=== PATIENT | male | born 1950 | race Caucasian/White ===

== ENCOUNTER 2016-05-28 07:21 | Day surgery (SDC) | payer BC ==
[2016-05-26 08:42] VITALS: BMI 27.8
[2016-05-28 07:33] VITALS: RESP 18; TEMP 98
[2016-05-28] MEDS ORDERED: LIDOCAINE 1% 20 ML VIAL (10MG/ML) FOR IV START INTRADERMA ONE (07:34)
[2016-05-28] MEDS ORDERED: LACTATED RINGERS 1,000 ML IV ONE (07:34)
[2016-05-28] MEDS ORDERED: PROPOFOL 10 MG/ML 20 ML VIAL IV ONE (08:00)
--- NOTE | 2016-05-28 08:06 | P.GSHP ---
History of Present Illness H&P Date: 05/28/16 Chief Complaint: Screening colonoscopy This a 66-year-old male referred from Dr. Hermann Hassan. Patient rents today for screening colonoscopy. - Constitutional Constitutional: Reports as per HPI Past Medical History Past Medical History: Hyperlipidemia, Hypertension, Prostate Disorder Additional Past Medical History / Comment(s): "slightly high BP", gout History of Any Multi-Drug Resistant Organisms: None Reported Past Surgical History: Appendectomy, Cholecystectomy, Orthopedic Surgery, Tonsillectomy Additional Past Surgical History / Comment(s): rach shoulder rotator cuff, Past Anesthesia/Blood Transfusion Reactions: No Reported Reaction Past Psychological History: No Psychological Hx Reported Smoking Status: Never smoker Past Alcohol Use History: None Reported Past Drug Use History: None Reported - Past Family History Father Family Medical History: Cancer Medications and Allergies Home Medications Medication Instructions Recorded Confirmed Type Doxazosin [Cardura] 1 mg PO HS 05/26/16 05/26/16 History Febuxostat [Uloric] 40 mg PO HS 05/26/16 05/26/16 History Simvastatin [Zocor] 20 mg PO HS 05/26/16 05/26/16 History Tamsulosin [Flomax] 0.4 mg PO HS 05/26/16 05/26/16 History Allergies Allergy/AdvReac Type Severity Reaction Status Date / Time No Known Allergies Allergy Verified 05/26/16 08:35 Surgical - Exam Vital Signs Temp Pulse Resp BP Pulse Ox 98.0 F 100 18 133/84 98 05/28/16 07:32 05/28/16 07:32 05/28/16 07:32 05/28/16 07:32 05/28/16 07:32 - General well developed, no distress - Eyes PERRL - ENT normal pinna - Neck no masses - Respiratory normal expansion - Cardiovascular Rhythm: regular - Abdomen Abdomen: non tender Assessment and Plan Plan: We'll perform screening colonoscopy.
--- NOTE | 2016-05-28 08:14 | P.OP ---
Date of Procedure: 05/28/16 Preoperative Diagnosis: Screening colonoscopy Postoperative Diagnosis: Normal colon Procedure(s) Performed: Colonoscopy Anesthesia: MAC Surgeon: Quang Pyle Pathology: none sent Condition: stable Disposition: PACU Description of Procedure: PROCEDURE: The patient was placed on the endoscopy table in the lateral position. Digital rectal examination was performed which revealed no abnormalities. The prostate was symmetrical without nodules. Flexible colonoscope was then placed in the patient's anus and passed throughout the entire colon. The ileocecal valve was visualized. The cecum, ascending, transverse, descending and sigmoid colon were normal. The rectum was normal as well. There were no masses, polyps or diverticula noted in the entire colon. SUMMARY OF FINDINGS: Normal colonoscopy.
[2016-05-28 08:58] VITALS: BP 122/78; PULSE 73
== END 2016-05-28 09:00 | disposition home or self-care (01) ==
LOC: ORWHC2ENDO 07:21
PROVIDERS: ATTEND Surgery
DX: Z12.11 Encounter for screening for malignant neoplasm of colon (principal); I10 Essential (primary) hypertension; E78.5 Hyperlipidemia, unspecified; N42.9 Disorder of prostate, unspecified; Z79.899 Other long term (current) drug therapy
CPT/HCPCS: J2704; G0121

== ENCOUNTER → 2020-07-09 | Outpatient (CLI) | payer BC ==
--- NOTE | 2020-07-09 13:50 | XR ---
EXAMINATION TYPE: XR Hip LT and AP Pelvis DATE OF EXAM: 07/09/2020 COMPARISON: NONE HISTORY: Trauma 6 months prior, pain TECHNIQUE: A single AP view of the pelvis is obtained. Two views of the left hip are obtained. FINDINGS: There is no acute fracture/dislocation evident in the pelvis. The hip and sacroiliac join ts appear symmetric and there may be some joint space loss, some mild marginal spurring. The overlyi ng soft tissue appears unremarkable. Two views of left hip show no acute fracture or dislocation. No focal lytic or sclerotic lesion seen in the proximal left femur. The overlying soft tissue is unremarkable. IMPRESSION: There is no acute fracture or dislocation in the pelvis or left hip. There may be underl rosanne osteoarthritic change.
--- NOTE | 2020-07-09 14:47 | XR ---
Lumbosacral spine HISTORY: Pain 5 views of lumbosacral spine There is no evident spondylolysis or spondylolisthesis. Lumbar vertebral bodies show preserved height and bone mineralization. Some loss of disc height present at L5-S1, L4-5 and L3-4, there is multilev el spondylosis. Sclerosis present in the posterior elements of the lower lumbar spine. Surgical clips are present right upper quadrant. 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 Calcification in the left parasp inal location may represent renal stone. IMPRESSION: Degenerative disc disease and facet arthropathy. Possible nephrolithiasis.
== END | disposition home or self-care (01) ==
LOC: RADXRMAIN 11:07
PROVIDERS: ATTEND Family Medicine
DX: M25.552 Pain in left hip (principal); M51.36 Other intervertebral disc degeneration, lumbar region; M12.88 Other specific arthropathies, not elsewhere classified, other specified site
CPT/HCPCS: 72110; 73502

== ENCOUNTER 2023-04-03 09:59 | Emergency (ER) | payer BC, OTHER ==
--- NOTE | 2023-04-03 10:15 | ED ---
General Adult HPI - General Chief complaint: Fall Stated complaint: Fall Time Seen by Provider: 04/03/23 10:00 Source: patient, RN notes reviewed Mode of arrival: ambulatory Limitations: no limitations - History of Present Illness Initial comments: Patient is a pleasant 73-year-old male presenting to the emergency department family for fall. Patient was sitting down in a chair when he missed and fell down. Patient is on Eliquis secondary to blood clots in his legs. 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 Family states after patient fell and struck his head he was dazed for several seconds. Patient was not completely unconscious. Patient denies syncopal episode. Patient denies any injury from the fall. - Related Data Home Medications Medication Instructions Recorded Confirmed Doxazosin [Cardura] 1 mg PO HS 05/26/16 05/26/16 Febuxostat [Uloric] 40 mg PO HS 05/26/16 05/26/16 Simvastatin [Zocor] 20 mg PO HS 05/26/16 05/26/16 Tamsulosin [Flomax] 0.4 mg PO HS 05/26/16 05/26/16 Allergies Allergy/AdvReac Type Severity Reaction Status Date / Time No Known Allergies Allergy Verified 04/03/23 10:08 Review of Systems ROS Statement: Those systems with pertinent positive or pertinent negative responses have been documented in the HPI. ROS Other: All systems not noted in ROS Statement are negative. Constitutional: Denies: fever Eyes: Denies: eye pain ENT: Denies: ear pain Respiratory: Denies: cough Cardiovascular: Denies: chest pain Endocrine: Denies: fatigue Gastrointestinal: Denies: abdominal pain Neurological: Reports: as per HPI. Denies: weakness Past Medical History Past Medical History: Cancer, Hyperlipidemia, Hypertension, Prostate Disorder Additional Past Medical History / Comment(s): "slightly high BP", gout, History of Any Multi-Drug Resistant Organisms: None Reported Past Surgical History: Appendectomy, Cholecystectomy, Orthopedic Surgery, Tonsillectomy Additional Past Surgical History / Comment(s): rach shoulder rotator cuff, Past Anesthesia/Blood Transfusion Reactions: No Reported Reaction Past Psychological History: No Psychological Hx Reported Smoking Status: Never smoker Past Alcohol Use History: None Reported Past Drug Use History: None Reported - Past Family History Father Family Medical History: Cancer General Exam Limitations: no limitations General appearance: alert, in no apparent distress Head exam: Present: normocephalic Eye exam: Present: normal appearance, PERRL, EOMI ENT exam: Present: normal oropharynx Neck exam: Present: normal inspection Respiratory exam: Present: normal lung sounds bilaterally Cardiovascular Exam: Present: regular rate, normal rhythm GI/Abdominal exam: Present: soft. Absent: tenderness Extremities exam: Present: normal inspection, full ROM. Absent: tenderness Neurological exam: Present: alert, oriented X3, CN II-XII intact. Absent: motor sensory deficit Expanded Neurological exam: Present: protecting the airway Cranial nerves: EOM's Intact: Normal Sensory exam: Upper Extremity Light Touch: Normal, Lower Extremity Light Touch: Normal Motor strength exam: RUE: 5, LUE: 5, RLE: 5, LLE: 5 Eye Response: (4) open spontaneously Motor Response: (6) obeys commands Verbal Response: (5) oriented Psychiatric exam: Present: normal affect, normal mood Skin exam: Present: normal color Course Vital Signs 04/03/23 04/03/23 04/03/23 10:02 10:55 12:06 Temperature 97.9 F Pulse Rate 115 H 116 H 103 H Respiratory 18 18 18 Rate Blood Pressure 126/83 121/79 122/77 O2 Sat by Pulse 93 L 92 L 95 Oximetry Medical Decision Making - Medical Decision Making Was pt. sent in by a medical professional or institution ([facility], [employer], urgent care, hospital, or longterm...) When possible be specific @ -No Did you speak to anyone other than the patient for history (EMS, parent, family, police, friend...)? What history was obtained from this source @ -Family is present and helps provide history including episode of the fall Did you review nursing and triage notes (agree or disagree)? Why? @ -I reviewed and agree with nursing and triage notes Were old charts reviewed (outside hosp., previous admission, EMS record, old EKG, old radiological studies, urgent care reports/EKG's, longterm records)? Report findings @ -No old charts were reviewed Differential Diagnosis (chest pain, altered mental status, abdominal pain women, abdominal pain men, vaginal bleeding, weakness, fever, dyspnea, syncope, heada melly, dizziness, GI bleed, back pain, seizure, CVA, palpatations, mental health, musculoskeletal)? @ -Differential Altered Mental Status: Hypoglycemia, DKA, hypercapnia, ETOH, overdose, CO poisoning, trauma, myxedema coma, HTN encephalopathy, infection, encephalitis, psychosis, intercranial hemorrhage, hepatic encephalopathy, meningitis, CVA, this is not meant to be an all-inclusive list s EKG interpreted by me (3pts min.). @ -As above X-rays interpreted by me (1pt min.). @ -None done CT interpreted by me (1pt min.). @ -CT brain reveals no acute abnormality. U/S interpreted by me (1pt. min.). @ -None done What testing was considered but not performed or refused? (CT, X-rays, U/S, labs)? Why? @ -None What meds were considered but not given or refused? Why? @ -None Did you discuss the management of the patient with other professionals (professionals i.e. , PA, [employer], lab, RT, psych nurse, social service assistant, lawyer real estate, teacher, service officer, case management associate)? Give summary @ -No Was smoking cessation discussed for >3mins.? @ -No Was critical care preformed (if so, how long)? @ -No Were there social determinants of health that impacted care today? How? (Homelessness, low income, unemployed, alcoholism, drug addiction, transportation, low edu. Level, literacy, decrease access to med. care, shelter, rehab)? @ -No Was there de-escalation of care discussed even if they declined (Discuss DNR or withdrawal of care, Hospice)? DNR status @ -No What co-morbidities impacted this encounter? (DM, HTN, Smoking, COPD, CAD, Cancer, CVA, ARF, Chemo, Hep., AIDS, mental health diagnosis, sleep apnea, morbid obesity)? @ -None Was patient admitted / discharged? Hospital course, mention meds given and route, prescriptions, significant lab abnormalities, going to OR and other pertinent info. @ -Patient reevaluated. Patient and family updated on results and plan. Both request discharge home. Undiagnosed new problem with uncertain prognosis? @ -No Drug Therapy requiring intensive monitoring for toxicity (Heparin, Nitro, Insulin, Cardizem)? @ -No Were any procedures done? @ -No Diagnosis/symptom? @ -Fall, head injury Acute, or Chronic, or Acute on Chronic? @ -Acute, acute Uncomplicated (without systemic symptoms) or Complicated (systemic symptoms)? @ -Default Side effects of treatment? @ -No Exacerbation, Progression, or Severe Exacerbation? @ -No Poses a threat to life or bodily function? How? (Chest pain, USA, NC, pneumonia, PE, COPD, DKA, ARF, appy, cholecystitis, CVA, Diverticulitis, Homicidal, Suicidal, threat to staff... and all critical care pts) @ -No Patient did have continued elevated heart rate. Additional labs ordered. Patient did receive liter bolus. Patient is feeling better. Vitals improved. Patient to be discharged. Previous hemoglobin was 8.0 per family - Lab Data Result diagrams: 04/03/23 12:04/03/23 12: Lab Results 04/03/23 04/03/23 Range/Units 12: 12: WBC 8.7 (3.8-10.6) k/uL RBC 2.39 L (4.30-5.90) m/uL Hgb 7.8 L (13.0-17.5) gm/dL Hct 23.6 L (39.0-53.0) % MCV 98.6 (80.0-100.0) fL MCH 32.8 (25.0-35.0) pg MCHC 33.3 (31.0-37.0) g/dL RDW 19.6 H (11.5-15.5) % Plt Count 58 L (150-450) k/uL MPV 9.7 Neutrophils % 90 % Lymphocytes % 9 % Monocytes % 1 % Eosinophils % 0 % Basophils % 0 % Neutrophils # 7.8 H (1.3-7.7) k/uL Lymphocytes # 0.8 L (1.0-4.8) k/uL Monocytes # 0.1 (0-1.0) k/uL Eosinophils # 0.0 (0-0.7) k/uL Basophils # 0.0 (0-0.2) k/uL Manual Slide Review Performed Anisocytosis Slight Macrocytosis Slight Sodium 134 L (137-145) mmol/L Potassium 4.1 (3.5-5.1) mmol/L Chloride 106 (98-107) mmol/L Carbon Dioxide 19 L (22-30) mmol/L Anion Gap 9 mmol/L BUN 36 H (9-20) mg/dL Creatinine 1.05 (0.66-1.25) mg/dL Est GFR (CKD-EPI)AfAm 82 (>60 ml/min/1.73 sqM) Est GFR (CKD-EPI)NonAf 71 (>60 ml/min/1.73 sqM) Glucose 98 (74-99) mg/dL Calcium 8.3 L (8.4-10.2) mg/dL Magnesium 1.6 (1.6-2.3) mg/dL Total Bilirubin 0.4 (0.2-1.3) mg/dL AST 63 H (17-59) U/L ALT 70 H (4-49) U/L Alkaline Phosphatase 261 H (38-126) U/L Total Protein 5.4 L (6.3-8.2) g/dL Albumin 3.0 L (3.5-5.0) g/dL Disposition Clinical Impression: Fall, Head contusion, Dehydration Disposition: HOME SELF-CARE Condition: Stable Instructions (If sedation given, give patient instructions): Fall Prevention (ED) Additional Instructions: Hold blood thinners for 24 hours. Please do follow-up with your primary care physician in the next 1 or 2 days for recheck. Return for increased falls, passing out, confusion, worsening or changing symptoms or other concerns. Is patient prescribed a controlled substance at d/c from ED?: No Referrals: Hermann Hassan MD [Primary Care Provider] - 1-2 days Time of Disposition: 12:41
[2023-04-03 10:33] VITALS: RESP 18
--- NOTE | 2023-04-03 11:17 | CT ---
EXAMINATION TYPE: CT brain wo con CT DLP: 1095.4 mGycm, Automated exposure control for dose reduction was used. DATE OF EXAM: 04/03/2023 10:51 AM COMPARISON: None. CLINICAL INDICATION:Male, 73 years old with history of fall, fall, no prior on pacs TECHNIQUE: Brain: Axial CT images of the brain were obtained with coronal and sagittal reformats created and rev iewed. Contrast used: None. Oral contrast used: None. FINDINGS: Brain: Extra-axial spaces: No abnormal extra-axial fluid collections. Ventricular system: Within normal limits Cerebral parenchyma: Remote left basal ganglia injury. No acute intraparenchymal hemorrhage or mass e ffect. The foley-white junction is well differentiated. Cerebellum: Normal injury to the left cerebellum. Mass effect: No evidence of midline shift. Intracranial vasculature: unremarkable Soft tissues: Normal. Calvarium/osseous structures: No depressed skull fracture. Paranasal sinuses and mastoid air cells: Mild scattered paranasal sinus disease. Visualized orbits: Orbital contents are intact. IMPRESSION: 1. No acute intracranial process. 2. 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
[2023-04-03] MEDS: SODIUM CHLORIDE 0.9% 1,000 ML IV STA (12:03)
[2023-04-03] MEDS: ACETAMINOPHEN TAB 500 MG TAB PO STA (12:04)
[2023-04-03 12:11] LABS: Anisocytosis Slight; Basophils % (A) 0 %; Eosinophils % (A) 0 %; HCT 23.6 % (39.0-53.0); HGB 7.8 gm/dL (13.0-17.5); Lymphocytes # (A) 0.8 k/uL (1.0-4.8); Lymphocytes % (A) 9 %; MCH 32.8 pg (25.0-35.0); MCHC 33.3 g/dL (31.0-37.0); MCV 98.6 fL (80.0-100.0); Macrocytosis Slight; Mean Platelet Volume 9.7; Monocytes # (A) 0.1 k/uL (0-1.0); Monocytes % (A) 1 %; Neutrophils # (A) 7.8 k/uL (1.3-7.7); Neutrophils % (A) 90 %; RBC 2.39 m/uL (4.30-5.90); RDW 19.6 % (11.5-15.5); WBC 8.7 k/uL (3.8-10.6)
[2023-04-03 12:30] LABS: ALT 70 U/L (4-49); AST 63 U/L (17-59); African American GFR (CKD) 82 (>60 ml/min/1.73 sqM); Alkaline Phosphatase 261 U/L (38-126); Anion Gap 9 mmol/L; Blood Urea Nitrogen 36 mg/dL (9-20); Calcium 8.3 mg/dL (8.4-10.2); Carbon Dioxide 19 mmol/L (22-30); Chloride 106 mmol/L (98-107); Glucose 98 mg/dL (74-99); Magnesium 1.6 mg/dL (1.6-2.3); Non-African American GFR(CKD) 71 (>60 ml/min/1.73 sqM); Potassium 4.1 mmol/L (3.5-5.1); Sodium 134 mmol/L (137-145); Total Bilirubin 0.4 mg/dL (0.2-1.3); Total Protein 5.4 g/dL (6.3-8.2)
[2023-04-03 12:35] LABS: Platelet Count 58 k/uL (150-450)
[2023-04-03 13:31] VITALS: BP 148/94; PULSE 102; TEMP 97.6
== END 2023-04-03 13:15 | disposition home or self-care (01) ==
LOC: EC 09:59
DX: S00.93XA Contusion of unspecified part of head, initial encounter (principal); E86.0 Dehydration; I10 Essential (primary) hypertension; E78.5 Hyperlipidemia, unspecified; Z79.01 Long term (current) use of anticoagulants; Z79.899 Other long term (current) drug therapy; Z90.49 Acquired absence of other specified parts of digestive tract; W01.0XXA Fall on same level from slipping, tripping and stumbling without subsequent striking against object, initial encounter
CPT/HCPCS: 36415; 80053; 83735; 85025; 70450; 99285; 96374; 96361; J1642

== ENCOUNTER 2023-04-17 20:44 | Inpatient (IN) | payer BC, MEDICARE ==
--- NOTE | 2023-04-17 20:59 | ED ---
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 and son are at bedside and provide the history. States that the patient was at home and felt well. The patient had sudden onset of altered mental status while watching TV. states that the patient reported he was "very cold". She states that he then went unresponsive. The patient was nonverbal and would not respond to any commands. She denies that there was any seizure-like activity. She does report that the patient had a recent head injury. He was seen in our emergency department and had a CAT scan of his brain performed. She also states that the patient received chemotherapy infusion on . [facility] of his bile duct cancer. Patient is status post Whipple procedure.. He also had a blood transfusion on . Patient arrives to our facility and is slowly starting to respond to questions. He continues to have residual weakness in his right leg and therefore code stroke was activated. Upon checking the patient's vitals he does have a notable fever. Family states that the patient was not having fevers and has no infectious symptoms. The remainder of the HPI is limited because the patient's current state - Related Data Home Medications Medication Instructions Recorded Confirmed Tamsulosin [Flomax] 0.4 mg PO HS 05/26/16 04/18/23 Acetaminophen/Codeine Liquid 5 ml PO Q6H PRN 04/18/23 04/18/23 [Tylenol w/codeine Elixir] Apixaban [Eliquis] 5 mg PO BID 04/18/23 04/18/23 HYDROcodone/APAP 7.5-325MG [[place] 1 tab PO TID PRN 04/18/23 04/18/23 7.5-325] Lipase/Protease/Amylase [Creon Dr 1 capsule PO QID 04/18/23 04/18/23 24,000 Unit Capsule] Metoclopramide HCl [Reglan] 10 mg PO TID 04/18/23 04/18/23 Midodrine [ProAmatine] 5 mg PO BID@0830,1500 04/18/23 04/18/23 Mirtazapine 15 mg PO HS 04/18/23 04/18/23 Omeprazole [PriLOSEC] 20 mg PO DAILY 04/18/23 04/18/23 Sennosides [Senokot] 8.6 mg PO BID 04/18/23 04/18/23 allopurinoL 100 mg PO HS 04/18/23 04/18/23 Previous Rx's Medication Instructions Recorded Amoxic-Pot Clav 875-125Mg 1 tab PO BID 10 Days #20 tab 04/22/23 [Augmentin 875-125] Atorvastatin [Lipitor] 20 mg PO HS #30 tab 04/22/23 Dabigatran [Pradaxa] 150 mg PO BID #60 capsule 04/22/23 Prochlorperazine [Compazine] 10 mg PO QID PRN #0 04/22/23 Allergies Allergy/AdvReac Type Severity Reaction Status Date / Time No Known Allergies Allergy Verified 04/18/23 08:11 Review of Systems ROS Statement: Those systems with pertinent positive or pertinent negative responses have been documented in the HPI. ROS Other: All systems not noted in ROS Statement are negative. Past Medical History Past Medical History: Cancer, Hyperlipidemia, Hypertension, Prostate Disorder Additional Past Medical History / Comment(s): "slightly high BP", gout, History of Any Multi-Drug Resistant Organisms: None Reported Past Surgical History: Appendectomy, Cholecystectomy, Orthopedic Surgery, Tonsillectomy Additional Past Surgical History / Comment(s): rach shoulder rotator cuff, Past Anesthesia/Blood Transfusion Reactions: No Reported Reaction Past Psychological History: No Psychological Hx Reported Smoking Status: Never smoker Past Alcohol Use History: None Reported Past Drug Use History: None Reported - Past Family History Father Family Medical History: Cancer General Exam Limitations: altered mental status General appearance: other (Patient is awake. Patient will follow some commands. Patient is nonverbal) Head exam: Present: atraumatic, normocephalic, normal inspection Eye exam: Present: normal appearance, PERRL, EOMI. Absent: scleral icterus, conjunctival injection, periorbital swelling ENT exam: Present: mucous membranes dry Neck exam: Present: normal inspection. Absent: tenderness, meningismus, lymphadenopathy Respiratory exam: Present: normal lung sounds bilaterally. Absent: respiratory distress, wheezes, rales, rhonchi, stridor Cardiovascular Exam: Present: normal rhythm, tachycardia GI/Abdominal exam: Present: soft, normal bowel sounds. Absent: distended, tenderness, guarding, rebound, rigid Extremities exam: Present: other (Patient has no effort against gravity of the right lower extremity.) Neurological exam: Present: altered, other (Patient is nonverbal. Patient will squeeze hands but will not blink eyes) Psychiatric exam: Present: flat affect Course Vital Signs 04/17/23 04/17/23 04/17/23 20:49 20:59 21:14 Temperature 102.7 F H Pulse Rate 161 H 128 H 130 H Respiratory 13 17 17 Rate Blood Pressure 171/109 132/92 O2 Sat by Pulse 94 L 95 95 Oximetry 04/17/23 04/17/23 04/17/23 21:29 21:41 21:44 Temperature Pulse Rate 135 H 142 H 135 H Respiratory 17 19 17 Rate Blood Pressure 165/86 O2 Sat by Pulse 95 93 L 95 Oximetry 04/17/23 04/17/23 04/17/23 21:59 22:14 22:33 Temperature 99.4 F Pulse Rate 126 H 147 H Respiratory 17 18 Rate Blood Pressure 124/77 110/69 O2 Sat by Pulse 95 94 L Oximetry 04/17/23 04/17/23 04/17/23 22:44 23:14 23:44 Temperature Pulse Rate 116 H 109 H 105 H Respiratory 18 17 17 Rate Blood Pressure 119/76 131/80 117/70 O2 Sat by Pulse 94 L 95 Oximetry 04/18/23 04/18/23 04/18/23 00:14 00:44 01:14 Temperature Pulse Rate 110 H 110 H 110 H Respiratory 18 17 18 Rate Blood Pressure 102/63 139/86 139/86 O2 Sat by Pulse 95 94 L 94 L Oximetry 04/18/23 04/18/23 04/18/23 01:44 02:00 02:14 Temperature Pulse Rate 127 H 110 H 102 H Respiratory 18 17 18 Rate Blood Pressure 127/76 127/76 116/74 O2 Sat by Pulse 98 98 Oximetry 04/18/23 04/18/23 04/18/23 02:44 03:00 03:14 Temperature Pulse Rate 116 H 101 H 103 H Respiratory 17 18 18 Rate Blood Pressure 136/91 136/91 99/67 O2 Sat by Pulse 95 95 98 Oximetry 04/18/23 04/18/23 04/18/23 03:44 08:00 11:00 Temperature Pulse Rate 112 H 98 68 Respiratory 18 16 16 Rate Blood Pressure 145/97 130/80 128/68 O2 Sat by Pulse 97 100 98 Oximetry 04/18/23 04/18/23 04/18/23 16:00 17:00 19:00 Temperature Pulse Rate 85 75 90 Respiratory 16 16 18 Rate Blood Pressure 145/68 138/68 137/88 O2 Sat by Pulse 96 96 99 Oximetry 04/18/23 04/19/23 04/19/23 23:00 03:00 06:12 Temperature Pulse Rate 85 74 80 Respiratory 18 18 18 Rate Blood Pressure 132/80 130/80 132/89 O2 Sat by Pulse 99 96 98 Oximetry 04/19/23 04/19/23 04/19/23 09:10 10:00 14:01 Temperature Pulse Rate 93 94 Respiratory 18 18 Rate Blood Pressure 125/96 120/78 O2 Sat by Pulse 95 98 98 Oximetry 04/19/23 04/19/23 18:42 19:30 Temperature Pulse Rate 78 84 Respiratory 18 18 Rate Blood Pressure 93/62 118/68 O2 Sat by Pulse 96 96 Oximetry Medical Decision Making - Medical Decision Making Was pt. sent in by a medical professional or institution (, PA, REGISTERED NURSE CARDIAC, urgent care, hospital, or fci...) When possible be specific @ -No Did you speak to anyone other than the patient for history (EMS, parent, family, police, friend...)? What history was obtained from this source @ -Son and Did you review nursing and triage notes (agree or disagree)? Why? @ -I reviewed and agree with nursing and triage notes Were old charts reviewed (outside hosp., previous admission, EMS record, old EKG, old radiological studies, urgent care reports/EKG's, fci records)? Report findings @ -No old charts were reviewed Differential Diagnosis (chest pain, altered mental status, abdominal pain women, abdominal pain men, vaginal bleeding, weakness, fever, dyspnea, syncope, headache, dizziness, GI bleed, back pain, seizure, CVA, palpatations, mental health, musculoskeletal)? @ -Differential Altered Mental Status: Hypoglycemia, DKA, hypercapnia, ETOH, overdose, CO poisoning, trauma, myxedema coma, HTN encephalopathy, infection, encephalitis, psychosis, intercranial hemorrhage, hepatic encephalopathy, meningitis, CVA, this is not meant to be an all-inclusive list EKG interpreted by me (3pts min.). @ -Yes and demonstrates sinus tachycardia with a rate of 148. QRS 77. QTc of 367. Significant baseline artifact X-rays interpreted by me (1pt min.). @ -Yes and demonstrates no acute process CT interpreted by me (1pt min.). @ -Yes and demonstrates old stroke U/S interpreted by me (1pt. min.). @ -None done What testing was considered but not performed or refused? (CT, X-rays, U/S, labs)? Why? @ -None What meds were considered but not given or refused? Why? @ -None Did you discuss the management of the patient with other professionals (professionals i.e. , PA, REGISTERED NURSE CARDIAC, lab, RT, psych nurse, social director, paper bundler, teacher, sewage reticulation drafting officer, case mgr)? Give summary @ -Spoke with Dr. Arellano to ensure that I can give the patient his Eliquis Was smoking cessation discussed for >3mins.? @ -No Was critical care preformed (if so, how long)? @ -Yes, 40 minutes for code stroke activation Were there social determinants of health that impacted care today? How? (Homelessness, low income, unemployed, alcoholism, drug addiction, transportation, low edu. Level, literacy, decrease access to med. care, usp, rehab)? @ -No Was there de-escalation of care discussed even if they declined (Discuss DNR or withdrawal of care, Hospice)? DNR status @ -Yes and would like the remain full code What co-morbidities impacted this encounter? (DM, HTN, Smoking, COPD, CAD, Cancer, CVA, ARF, Chemo, Hep., AIDS, mental health diagnosis, sleep apnea, morbid obesity)? @ -Bile duct cancer, CVA Was patient admitted / discharged? Hospital course, mention meds given and route, prescriptions, significant lab abnormalities, going to OR and other pertinent info. @ -Upon arrival patient was placed into trauma 3. Thorough history and physical exam was performed. Patient does present with acute onset of altered mental status and therefore code stroke was activated. CT was performed which demonstrates no acute process. Patient is on anticoagulation and therefore not a tPA candidate. Patient found to have a fever. Infectious workup completed without source. Patient is initiated on antibiotics. I spoke with Dr. Arellano to ensure that I could give the patient his Eliquis with stroke in the differential. He was okay with me dispensing this to the patient. Patient will be admitted for infectious workup as well as neurology workup. Spoke with family who is agreeable to admission. Dr. Hummel accepts admission Undiagnosed new problem with uncertain prognosis? @ -Yes Drug Therapy requiring intensive monitoring for toxicity (Heparin, Nitro, Insulin, Cardizem)? @ -No Were any procedures done? @ -No Diagnosis/symptom? @ -Acute encephalopathy, possible CVA, pyrexia, fever of unknown origin, neutropenic fever, bile duct cancer on chemo Acute, or Chronic, or Acute on Chronic? @ -Acute Uncomplicated (without systemic symptoms) or Complicated (systemic symptoms)? @ -Complicated Side effects of treatment? @ -No Exacerbation, Progression, or Severe Exacerbation? @ -No Poses a threat to life or bodily function? How? (Chest pain, [place], [place], pneumonia, PE, COPD, DKA, ARF, appy, cholecystitis, CVA, Diverticulitis, Homicidal, Suicidal, threat to staff... and all critical care pts) @ -Yes as patient is acutely altered - Lab Data Result diagrams: 04/22/23 08:00 04/20/23 07:54 Lab Results 04/17/23 04/17/23 04/17/23 Range/Units 20:59 21:00 21:00 WBC 1.3 L* (3.8-10.6) k/uL RBC 2.60 L (4.30-5.90) m/uL Hgb 8.7 L (13.0-17.5) gm/dL Hct 25.6 L (39.0-53.0) % MCV 98.3 (80.0-100.0) fL MCH 33.6 (25.0-35.0) pg MCHC 34.2 (31.0-37.0) g/dL RDW 20.6 H (11.5-15.5) % Plt Count 132 L D (150-450) k/uL MPV 9.2 Neutrophils % 82 % Lymphocytes % 14 % Monocytes % 1 % Eosinophils % 1 % Basophils % 0 % Neutrophils # 1.1 L (1.3-7.7) k/uL Lymphocytes # 0.2 L (1.0-4.8) k/uL Monocytes # 0.0 (0-1.0) k/uL Eosinophils # 0.0 (0-0.7) k/uL Basophils # 0.0 (0-0.2) k/uL Anisocytosis Moderate Macrocytosis Moderate PT 10.9 (10.0-12.5) sec INR 1.0 (<1.2) APTT 23.8 (22.0-30.0) sec Sodium (137-145) mmol/L Potassium (3.5-5.1) mmol/L Chloride (98-107) mmol/L Carbon Dioxide (22-30) mmol/L Anion Gap mmol/L BUN (9-20) mg/dL Creatinine (0.66-1.25) mg/dL Est GFR (CKD-EPI)AfAm (>60 ml/min/1.73 sqM) Est GFR (CKD-EPI)NonAf (>60 ml/min/1.73 sqM) Glucose (74-99) mg/dL Lactic Ac Sepsis Rflx Plasma Lactic Acid Bry[place] (0.7-2.0) mmol/L Calcium (8.4-10.2) mg/dL Total Bilirubin (0.2-1.3) mg/dL AST (17-59) U/L ALT (4-49) U/L Alkaline Phosphatase (38-126) U/L Creatine Kinase (55-170) U/L Troponin I 0.040 H* (0.000-0.034) ng/mL Total Protein (6.3-8.2) g/dL Albumin (3.5-5.0) g/dL Urine Color Urine Appearance (Clear) Urine pH (5.0-8.0) Ur Specific [place] (1.001-1.035) Urine Protein (Negative) Urine Glucose (UA) (Negative) Urine Ketones (Negative) Urine Blood (Negative) Urine Nitrite (Negative) Urine Bilirubin (Negative) Urine Urobilinogen (<2.0) mg/dL Ur Leukocyte Esterase (Negative) Urine RBC (0-5) /hpf Urine WBC (0-5) /hpf Urine Bacteria (None) /hpf Urine Mucus (None) /hpf Influenza Type A (PCR) (Not Detectd) Influenza Type B (PCR) (Not Detectd) RSV (PCR) (Not Detectd) SARS-CoV-2 (PCR) (Not Detectd) 04/17/23 04/17/23 04/17/23 Range/Units 21:00 21:00 21:00 WBC (3.8-10.6) k/uL RBC (4.30-5.90) m/uL Hgb (13.0-17.5) gm/dL Hct (39.0-53.0) % MCV (80.0-100.0) fL MCH (25.0-35.0) pg MCHC (31.0-37.0) g/dL RDW (11.5-15.5) % Plt Count (150-450) k/uL MPV Neutrophils % % Lymphocytes % % Monocytes % % Eosinophils % % Basophils % % Neutrophils # (1.3-7.7) k/uL Lymphocytes # (1.0-4.8) k/uL Monocytes # (0-1.0) k/uL Eosinophils # (0-0.7) k/uL Basophils # (0-0.2) k/uL Anisocytosis Macrocytosis PT (10.0-12.5) sec INR (<1.2) APTT (22.0-30.0) sec Sodium 136 L (137-145) mmol/L Potassium 4.8 (3.5-5.1) mmol/L Chloride 107 (98-107) mmol/L Carbon Dioxide 19 L (22-30) mmol/L Anion Gap 10 mmol/L BUN 32 H (9-20) mg/dL Creatinine 1.47 H (0.66-1.25) mg/dL Est GFR (CKD-EPI)AfAm 54 (>60 ml/min/1.73 sqM) Est GFR (CKD-EPI)NonAf 47 (>60 ml/min/1.73 sqM) Glucose 152 H (74-99) mg/dL Lactic Ac Sepsis Rflx Plasma Lactic Acid [place] 3.1 H* (0.7-2.0) mmol/L Calcium 8.5 (8.4-10.2) mg/dL Total Bilirubin 1.0 (0.2-1.3) mg/dL AST 137 H (17-59) U/L ALT 81 H (4-49) U/L Alkaline Phosphatase 284 H (38-126) U/L Creatine Kinase 42 L (55-170) U/L Troponin I (0.000-0.034) ng/mL Total Protein 6.2 L (6.3-8.2) g/dL Albumin 3.3 L (3.5-5.0) g/dL Urine Color Urine Appearance (Clear) Urine pH (5.0-8.0) Ur Specific [place] (1.001-1.035) Urine Protein (Negative) Urine Glucose (UA) (Negative) Urine Ketones (Negative) Urine Blood (Negative) Urine Nitrite (Negative) Urine Bilirubin (Negative) Urine Urobilinogen (<2.0) mg/dL Ur Leukocyte Esterase (Negative) Urine RBC (0-5) /hpf Urine WBC (0-5) /hpf Urine Bacteria (None) /hpf Urine Mucus (None) /hpf Influenza Type A (PCR) Not Detected (Not Detectd) Influenza Type B (PCR) Not Detected (Not Detectd) RSV (PCR) Not Detected (Not Detectd) SARS-CoV-2 (PCR) Not Detected (Not Detectd) 04/17/23 04/18/23 Range/Units 23:06 00:21 WBC (3.8-10.6) k/uL RBC (4.30-5.90) m/uL Hgb (13.0-17.5) gm/dL Hct (39.0-53.0) % MCV (80.0-100.0) fL MCH (25.0-35.0) pg MCHC (31.0-37.0) g/dL RDW (11.5-15.5) % Plt Count (150-450) k/uL MPV Neutrophils % % Lymphocytes % % Monocytes % % Eosinophils % % Basophils % % Neutrophils # (1.3-7.7) k/uL Lymphocytes # (1.0-4.8) k/uL Monocytes # (0-1.0) k/uL Eosinophils # (0-0.7) k/uL Basophils # (0-0.2) k/uL Anisocytosis Macrocytosis PT (10.0-12.5) sec INR (<1.2) APTT (22.0-30.0) sec Sodium (137-145) mmol/L Potassium (3.5-5.1) mmol/L Chloride (98-107) mmol/L Carbon Dioxide (22-30) mmol/L Anion Gap mmol/L BUN (9-20) mg/dL Creatinine (0.66-1.25) mg/dL Est GFR (CKD-EPI)AfAm (>60 ml/min/1.73 sqM) Est GFR (CKD-EPI)NonAf (>60 ml/min/1.73 sqM) Glucose (74-99) mg/dL Lactic Ac Sepsis Rflx Y Plasma Lactic Acid [place] (0.7-2.0) mmol/L Calcium (8.4-10.2) mg/dL Total Bilirubin (0.2-1.3) mg/dL AST (17-59) U/L ALT (4-49) U/L Alkaline Phosphatase (38-126) U/L Creatine Kinase (55-170) U/L Troponin I (0.000-0.034) ng/mL Total Protein (6.3-8.2) g/dL Albumin (3.5-5.0) g/dL Urine Color Colorless Urine Appearance Clear (Clear) Urine pH 5.5 (5.0-8.0) Ur Specific [place] 1.032 (1.001-1.035) Urine Protein Negative (Negative) Urine Glucose (UA) Negative (Negative) Urine Ketones Negative (Negative) Urine Blood Small H (Negative) Urine Nitrite Negative (Negative) Urine Bilirubin Negative (Negative) Urine Urobilinogen <2.0 (<2.0) mg/dL Ur Leukocyte Esterase Negative (Negative) Urine RBC 7 H (0-5) /hpf Urine WBC 3 (0-5) /hpf Urine Bacteria Rare H (None) /hpf Urine Mucus Rare H (None) /hpf Influenza Type A (PCR) (Not Detectd) Influenza Type B (PCR) (Not Detectd) RSV (PCR) (Not Detectd) SARS-CoV-2 (PCR) (Not Detectd) Disposition Clinical Impression: Acute encephalopathy, Pyrexia of unknown origin, Pancytopenia, Maintenance ch emotherapy Disposition: ADMITTED IP TO THIS [facility] Condition: Serious Is patient prescribed a controlled substance at d/c from ED?: No Time of Disposition: 00:16 Decision to Admit Reason: Admit from EC Decision Date: 04/18/23 Decision Time: 00:16
--- NOTE | 2023-04-17 21:30 | CT ---
EXAMINATION TYPE: CT brain wo con CT DLP: 1289 mGycm, Automated exposure control for dose reduction was used. DATE OF EXAM: 04/17/2023 9:27 PM COMPARISON: 04/03/2023. CLINICAL INDICATION:Male, 73 years old with history of Neuro deficit, acute, stroke suspected, TECHNIQUE: Brain: Axial CT images of the brain were obtained with coronal and sagittal reformats created and rev iewed. Contrast used: None. Oral contrast used: None. FINDINGS: Brain: Extra-axial spaces: No abnormal extra-axial fluid collections. Ventricular system: Dilatation in proportion to cerebral atrophy. Cerebral parenchyma: Remote injury to the left bach radiata/basal ganglia first prominent perivascu lar space. Remote injury to the left cerebellum unchanged from prior. No acute intraparenchymal hemor rhage or mass effect. The foley-white junction is well differentiated. Scattered hypoattenuating area s are seen within the white matter. Cerebellum: Unremarkable. Mass effect: No evidence of midline shift. Intracranial vasculature: unremarkable Soft tissues: Normal. Calvarium/osseous structures: No depressed skull fracture. Paranasal sinuses and mastoid air cells: Mild scattered paranasal sinus disease. Visualized orbits: Orbital contents are intact. IMPRESSION: 1. No acute intracranial process. 2. Similar left basal ganglia/bach radiata and left cerebellar injuries.
[2023-04-17] MEDS: ACETAMINOPHEN IV (For NPO) 1,000 MG in EMPTY BAG 1 BAG IVPB STA (21:34)
[2023-04-17] MEDS: SODIUM CHLORIDE 0.9% 500 ML 500 ML IV STA (21:34)
--- NOTE | 2023-04-17 21:41 | XR ---
EXAMINATION TYPE: XR chest 2V DATE OF EXAM: 04/17/2023 9:35 PM CLINICAL INDICATION:Male, 73 years old with history of altered mental status; COMPARISON: Chest radiographs from 02/20/2021 TECHNIQUE: XR chest 2V Frontal and lateral views of the chest. FINDINGS: Lungs/Pleura: There is no evidence of pleural effusion, focal consolidation, or pneumothorax. Pulmonary vascularity: Unremarkable. Heart/mediastinum: Cardiomediastinal silhouette is unremarkable. Musculoskeletal: No acute osseous pathology. Other findings: None Lines/Tubes: Right internal jugular central venous catheter with distal tip at the cavoatrial junction. IMPRESSION: No acute cardiopulmonary disease/process.
[2023-04-17 21:47] LABS: Anisocytosis Moderate; Basophils % (A) 0 %; Eosinophils % (A) 1 %; HCT 25.6 % (39.0-53.0); HGB 8.7 gm/dL (13.0-17.5); Lymphocytes # (A) 0.2 k/uL (1.0-4.8); Lymphocytes % (A) 14 %; MCH 33.6 pg (25.0-35.0); MCHC 34.2 g/dL (31.0-37.0); MCV 98.3 fL (80.0-100.0); Macrocytosis Moderate; Mean Platelet Volume 9.2; Monocytes % (A) 1 %; Neutrophils # (A) 1.1 k/uL (1.3-7.7); Neutrophils % (A) 82 %; RDW 20.6 % (11.5-15.5)
[2023-04-17 21:53] LABS: Platelet Count 132 k/uL (150-450)
[2023-04-17 21:54] LABS: WBC 1.3 k/uL (3.8-10.6)
--- NOTE | 2023-04-17 21:58 | CT ---
EXAMINATION TYPE: CT angio head neck CT DLP: 355 mGycm, Automated exposure control for dose reduction was used. DATE OF EXAM: 04/17/2023 9:49 PM COMPARISON: . CLINICAL INDICATION:Male, 73 years old with history of Neuro deficit, acute, stroke suspected; PHH, N euro deficit, acute, stroke suspected. nonverbal TECHNIQUE: Axially acquired helical CT angiogram of the head and neck was obtained with contrast. Axi al images are supplemented with 3D reconstructions and MIP images which were post-processed at an in dependent workstation. NASCET criteria used. Contrast used:80 cc mL of Isovue 300 with IV Contrast, Oral contrast used: None. FINDINGS: CTA HEAD: No evidence of acute intracranial hemorrhage, mass effect, or midline shift. The ventricles, sulci, a nd cisterns are unremarkable. The visualized portions of the internal carotid arteries, middle cerebral arteries, anterior cerebral arteries, and posterior cerebral arteries are patent. The basilar and vertebral arteries are patent. CTA NECK: Right Carotid System: The common carotid and external carotid arteries are patent. There is less than 25% stenosis at the c arotid bifurcation secondary to calcified/noncalcified plaque. The rest of the internal carotid arter y is patent. Left Carotid System: The common carotid and external carotid arteries are patent. There is less than 50% stenosis at the c arotid bifurcation secondary to calcified/noncalcified plaque. Weblike filling defect also noted on a couple of the sequences in the proximal internal carotid artery Mild atherosclerotic in etiology and less likely dissection. The rest of the internal carotid artery is patent. Vertebral arteries are patent without evidence hemodynamically significant stenosis. There is a three-vessel aortic arch. The origins of the great vessels are patent. No evidence of hemo dynamically significant stenosis. Upper thorax: Right upper lobe 3 mm pulmonary nodule. Opacities in the right upper lobe also present. IMPRESSION: 1. No evidence of dissection of the cervical internal carotid arteries or vertebral arteries or any e vidence of significant stenosis at the carotid bifurcations. 2. No evidence of intracranial high-grade stenosis or intracranial aneurysm. 3. Right upper lobe nodules which should be reassessed future resolution 1-2 months.
[2023-04-17 22:02] LABS: Partial Thromboplastin Time 23.8 sec (22.0-30.0); Prothrombin Time 10.9 sec (10.0-12.5)
[2023-04-17 22:39] LABS: ALT 81 U/L (4-49); African American GFR (CKD) 54 (>60 ml/min/1.73 sqM); Anion Gap 10 mmol/L; Blood Urea Nitrogen 32 mg/dL (9-20); Calcium 8.5 mg/dL (8.4-10.2); Carbon Dioxide 19 mmol/L (22-30); Chloride 107 mmol/L (98-107); Creatine Kinase 42 U/L (55-170); Glucose 152 mg/dL (74-99); Non-African American GFR(CKD) 47 (>60 ml/min/1.73 sqM); Sodium 136 mmol/L (137-145)
[2023-04-17 22:40] LABS: AST 137 U/L (17-59); Albumin 3.3 g/dL (3.5-5.0); Alkaline Phosphatase 284 U/L (38-126); Potassium 4.8 mmol/L (3.5-5.1); Total Protein 6.2 g/dL (6.3-8.2)
[2023-04-17] MEDS: SODIUM CHLORIDE 0.9% 1,000 ML IV ONE (23:06)
[2023-04-18] MEDS ORDERED: VANCOMYCIN IV PER PHARMACY 1 EACH MISC MISCELLANE PRN (00:19)
[2023-04-18 00:57] LABS: Appearance,Urine Clear (Clear); Bacteria,Urine Rare /hpf; Bilirubin,Urine Negative (Negative); Blood,Urine Small (Negative); Color,Urine Colorless; Glucose,Urine (UA) Negative (Negative); Ketones,Urine Negative (Negative); Leukocyte Esterase,Urine Negative (Negative); Mucus,Urine Rare /hpf; Nitrite,Urine Negative (Negative); PH, Urine 5.5 (5.0-8.0); Protein,Urine Negative (Negative); RBC,Urine 7 /hpf (0-5); Specific Gravity,Urine 1.032 (1.001-1.035); Urobilinogen,Urine <2.0 mg/dL (<2.0); WBC,Urine 3 /hpf (0-5)
[2023-04-18] MEDS: CEFEPIME 2 GM in SODIUM CHLORIDE 0.9% 100 ML IVPB STA (01:13)
[2023-04-18] MEDS ORDERED: ACETAMINOPHEN TAB 325 MG TAB PO PRN (01:23)
[2023-04-18] MEDS: SODIUM CHLORIDE 0.9% 1,000 ML IV SCH (01:30)
[2023-04-18] MEDS: METOCLOPRAMIDE 10 MG TAB PO SCH (01:31)
[2023-04-18] MEDS: MIRTAZAPINE 15 MG TAB PO SCH ×2 (01:31→21:00)
[2023-04-18] MEDS: allopurinoL 100 MG TAB PO SCH (01:31)
[2023-04-18] MEDS: SENNOSIDES 8.6 MG TAB PO SCH (01:31)
[2023-04-18] MEDS: TAMSULOSIN 0.4 MG CAP.ER.24H PO SCH ×2 (01:31→21:00)
[2023-04-18] MEDS: APIXABAN 5 MG TAB PO SCH (01:38)
[2023-04-18] MEDS: VANCOMYCIN 1,000 MG in SODIUM CHLORIDE 0.9% 250 ML IVPB ONE (02:11)
[2023-04-18] MEDS: Acetaminophen-Codeine 300-30mg TAB PO STA (04:54)
[2023-04-18] MEDS ORDERED: ACET/COD 120MG/12MG LIQ 5ML CUP PO PRN (06:00)
[2023-04-18] MEDS: MIDODRINE 5 MG TAB PO SCH ×2 (08:22→14:41)
[2023-04-18] MEDS: PANTOPRAZOLE 40 MG TABLET PO SCH (08:22)
--- NOTE | 2023-04-18 11:45 | P.CNNES ---
History of Present Illness Consult date: 04/18/23 Requesting physician: Paz Harper Reason for Consult: acute transient encepalopathy, possible tia vs seizure, fever History of Present Illness: Patient is a 73-year-old right-handed male came to the hospital yesterday at 8:44 PM for altered mental status. Patient's son was present, who provided with a history. Patient's son mentions that patient has suffered from a stroke 4 months ago when he was treated at [facility]. The family felt he was dehydrated at that time but he was diagnosed with a stroke in [facility] and started him on Eliquis. Patient's son mentions that patient has residual deficits of difficulty recalling the words, and sometimes cannot think what he wants to say at times. There was no focal deficits like focal weakness, numbness or tingling. Patient's son mentions that yesterday he was sitting in the couch, watching TV last night when he suddenly developed uncontrollable shivering and cold. He covered him with blankets but did not help. He was talking and suddenly he stopped responding. His son asked if he would like to go to the hospital and he said yes for that. He noticed that he could not walk or move his right leg for about half an hour. His speech difficulty also lasted for about half an hour to an hour. There was no facial droop or any focal weakness of the upper extremities. He was slightly confused, could not come up with certain words and has trouble using the phone. For this reason, he was brought to the hospital. Patient's son mentions that about couple days ago, he was sitting, eating dinner, when he mentioned that he could not see out of his 1 eye which he believes was the left eye. It lasted for a few minutes and went away. He did close 1, and then the other eye, it was only involving the left eye. Patient's vital signs on arrival blood pressure 171/109, pulse rate 161 temperature 102.7. Blood test shows WBC very decreased 1.3, hemoglobin 8.7, platelets 132. PT PTT normal, sodium 136 potassium 4.8, BUN 32, creatinine 1.47. Lactate 3.1. AST is 137, ALT 81, CK 42, troponin is mildly elevated 0.040. UA negative. Influenza, RSV and coronavirus PCR negative. CT head revealed no acute intracranial process. I personally reviewed CT head agree with the findings. Similar left basal ganglia/bach radiator and left cerebellar injuries. Chest x-ray is normal. EKG shows supraventricular tachycardia. Home medications include Flomax, omeprazole, mirtazapine 50 mg, Reglan 10 mg 3 times daily, Eliquis 5 mg twice daily, allopurinol, midodrine 5 mg twice daily, [place]. Patient's son mentions that he is very compliant with the medications, does not miss the dose. Patient lives with his . He does not use any assistive device. No history of dementia. Patient still does Trivia fact puzzles, and does very well. No history of tobacco use, alcohol. No hypertension or diabetes. 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 He underwent Whipple procedure in May 2022. He was placed on oral chemotherapy in summer 2022 but it did not work. He was started on IV chemotherapy of 2 different types, in which she gets 2 weeks on, 1 week off since fall 2022. Currently on chemotherapy with last chemo on , 04/14/2023. Review of Systems Constitutional: Reports chills, Reports fever Eyes: left loss of vision (Only transient, happened couple days ago.), denies blurred vision, denies diplopia, denies pain Ears: deny: decreased hearing, ear discharge Ears, nose, mouth and throat: Denies headache, Denies sore throat, Denies vertigo Cardiovascular: Denies chest pain, Denies lightheadedness, Denies shortness of breath Respiratory: Denies cough, Denies excessive sputum Gastrointestinal: Denies abdominal pain, Denies diarrhea, Denies nausea, Denies vomiting Genitourinary: Denies dysuria, Denies incontinence Musculoskeletal: Denies low back pain, Denies neck pain Integumentary: Denies pruritus, Denies rash Neurological: Reports as per HPI Psychiatric: Denies anxiety, Denies depression Endocrine: Denies fatigue, Denies weight change Hematologic/Lymphatic: Reports easy bruising, Denies easy bleeding Past Medical History Past Medical History: Cancer, Hyperlipidemia, Hypertension, Prostate Disorder Additional Past Medical History / Comment(s): "slightly high BP", gout, History of Any Multi-Drug Resistant Organisms: None Reported Past Surgical History: Appendectomy, Cholecystectomy, Orthopedic Surgery, Tonsillectomy Additional Past Surgical History / Comment(s): rach shoulder rotator cuff, Past Anesthesia/Blood Transfusion Reactions: No Reported Reaction Past Psychological History: No Psychological Hx Reported Smoking Status: Never smoker Past Alcohol Use History: None Reported Past Drug Use History: None Reported - Past Family History Father Family Medical History: Cancer Medications and Allergies Home Medications Medication Instructions Recorded Confirmed Type Tamsulosin [Flomax] 0.4 mg PO HS 05/26/16 04/18/23 History Acetaminophen/Codeine Liquid 5 ml PO Q6H PRN 04/18/23 04/18/23 History [Tylenol w/codeine Elixir] Apixaban [Eliquis] 5 mg PO BID 04/18/23 04/18/23 History HYDROcodone/APAP 7.5-325MG [[place] 1 tab PO TID PRN 04/18/23 04/18/23 History 7.5-325] Lipase/Protease/Amylase [Creon Dr 1 capsule PO QID 04/18/23 04/18/23 History 24,000 Unit Capsule] Metoclopramide HCl [Reglan] 10 mg PO TID 04/18/23 04/18/23 History Midodrine [ProAmatine] 5 mg PO BID@0830,1500 04/18/23 04/18/23 History Mirtazapine 15 mg PO HS 04/18/23 04/18/23 History Omeprazole [PriLOSEC] 20 mg PO DAILY 04/18/23 04/18/23 History Prochlorperazine [Compazine] 10 mg PO QID 04/18/23 04/18/23 History Sennosides [Senokot] 8.6 mg PO BID 04/18/23 04/18/23 History allopurinoL [Allopurinol] 100 mg PO HS 04/18/23 04/18/23 History Allergies Allergy/AdvReac Type Severity Reaction Status Date / Time No Known Allergies Allergy Verified 04/18/23 08:11 Physical Examination - Vital Signs Vital Signs: Vital Signs Temp Pulse Resp BP Pulse Ox 04/18/23 08:00 98 16 130/80 100 04/18/23 03:44 112 H 18 145/97 97 04/18/23 03:14 103 H 18 99/67 98 04/18/23 03:00 101 H 18 136/91 95 04/18/23 02:44 116 H 17 136/91 95 04/18/23 02:14 102 H 18 116/74 98 04/18/23 02:00 110 H 17 127/76 04/18/23 01:44 127 H 18 127/76 98 04/18/23 01:14 110 H 18 139/86 94 L 04/18/23 00:44 110 H 17 139/86 94 L 04/18/23 00:14 110 H 18 102/63 95 04/17/23 23:44 105 H 17 117/70 95 04/17/23 23:14 109 H 17 131/80 94 L 04/17/23 22:44 116 H 18 119/76 04/17/23 22:33 99.4 F 04/17/23 22:14 147 H 18 110/69 94 L 04/17/23 21:59 126 H 17 124/77 95 04/17/23 21:44 135 H 17 95 04/17/23 21:41 142 H 19 165/86 93 L 04/17/23 21:29 135 H 17 95 04/17/23 21:14 130 H 17 132/92 95 04/17/23 20:59 128 H 17 95 04/17/23 20:49 102.7 F H 161 H 13 171/109 94 L Intake and Output 04/17/23 04/18/23 04/18/23 22:59 06:59 14:59 Other: Weight 53.07 kg Patient is an elderly male, in no acute distress. Patient is somewhat cachectic looking. Patient is alert awake oriented to place and person. He appears slightly spacey, slow mentation. Patient states the year is 1950, could not tell the current month or the year. He thinks it is the month of July, and believes currently is the spring season. Patient knows that he is in [facility] in [facility]. He was able to recall name of the president only with prompt. Speech and language functions are normal. Patient can name and repeat very well. No aphasia or dysarthria. Attention, concentration and fund of knowledge is adequate. On cranial nerve examination, pupils are equal, round and reacting to light, visual garcia are full on confrontation, with no neglect on double simultaneous stimulation. Extraocular muscles are intact with no nystagmus. Face is symmetric, tongue protrudes to the midline. Palatal elevation and sensation normal, hearing and shoulder shrug normal, facial sensation normal. On muscle strength testing, there is no pronator drift and the strength is normal in arms and legs distally and proximally. Deep tendon reflexes are symmetric 2+ to 3 at the biceps, brachioradialis, knees and 1+ at ankles and plantars downgoing. Sensory to touch is equal with no neglect on double simultaneous stimulation. Cerebellar function showed no ataxia for [id number] testing. No dysdiadochokinesia. No ataxia for [id number] testing on either side. Tone and bulk of muscles normal. Gait deferred.. On general examination, there is no carotid bruit or murmur, S1-S2 audible. Chest is clear on consultation. Abdomen is soft nontender. No organomegaly, bowel sounds present. Peripheral pulses are present. No peripheral edema. Results - Laboratory Findings CBC and BMP: 04/19/23 06:00 04/19/23 06:00 Abnormal Lab Findings: Abnormal Labs 04/17/23 04/17/23 04/17/23 20:59 21:00 21:00 WBC 1.3 L* RBC 2.60 L Hgb 8.7 L Hct 25.6 L RDW 20.6 H Plt Count 132 L D Neutrophils # 1.1 L Lymphocytes # 0.2 L Sodium 136 L Carbon Dioxide 19 L BUN 32 H Creatinine 1.47 H Glucose 152 H Plasma Lactic Acid Bryson AST 137 H ALT 81 H Alkaline Phosphatase 284 H Creatine Kinase 42 L Troponin I 0.040 H* Total Protein 6.2 L Albumin 3.3 L Urine Blood Urine RBC Urine Bacteria Urine Mucus 04/17/23 04/18/23 21:00 00:21 WBC RBC Hgb Hct RDW Plt Count Neutrophils # Lymphocytes # Sodium Carbon Dioxide BUN Creatinine Glucose Plasma Lactic Acid Bryson 3.1 H* AST ALT Alkaline Phosphatase Creatine Kinase Troponin I Total Protein Albumin Urine Blood Small H Urine RBC 7 H Urine Bacteria Rare H Urine Mucus Rare H Assessment and Plan Assessment: * Possible TIA manifesting with transient speech difficulty and right leg wea kness, that resolved in about 30 to 45 minutes. Patient had a possible amaurosis fugax left eye about couple days ago. Exact cause of these focal symptoms unclear, as patient is already on Eliquis 5 mg twice daily. * History of CVA 4 months ago, with residual some word finding difficulty. * Altered mental status, likely due to metabolic encephalopathy. * Pancytopenia, with severe leukopenia, likely from chemotherapy * Fever * Mild renal insufficiency * Hyponatremia * Elevated liver enzymes * Borderline evaded cardiac enzymes * Lactic acidosis, possible due to sepsis * History of metastatic cholangiocarcinoma, currently on chemotherapy. Plan: * Possible stroke versus TIA. Patient undergoing MRI of the brain to rule out CVA * CTA of head and neck revealed no evidence of dissection of the cervical internal carotid arteries or vertebral arteries or any evidence of significant stenosis at the carotid bifurcations. No evidence of intracranial high-grade stenosis or intracranial aneurysm. Right upper lobe nodule which should be reassessed future resolution 1 to 2 months. This later to be addressed by IM. * 2D echo rule out embolic source. Patient may need JANENE to rule out vegetations. * Patient undergoing EEG rule out any epileptiform activity. * Patient is currently on Eliquis 5 mg twice daily, compliant with the medication. * Hemoglobin A1c, fasting lipid panel. * Infectious disease has been consulted for leukopenia/lymphopenia, and high fever of 102.7. Patient denies headache. No evidence of meningitis. * Evaluation of other medical conditions as mentioned above, as per IM and other specialties. * Neurology will follow after above testing completed. Thank you for the consult. Time with Patient: Greater than 30
[2023-04-18] MEDS ORDERED: IOPAMIDOL CONTRAST (ORAL USE) VIAL PO PRN (12:08)
[2023-04-18] MEDS ORDERED: PROCHLORPERAZINE 10 MG TAB PO SCH (13:00)
[2023-04-18] MEDS: LIPASE 20,000/PROTEASE 63,000/AMYLASE 84,000 PO SCH (14:28)
--- NOTE | 2023-04-18 14:47 | CT ---
Exam: CT CHEST, ABDOMEN AND PELVIS WITHOUT CONTRAST. Date: 04/18/2023. Comparison: None History: Fever and pain. Technique: CT examination of the chest, abdomen and pelvis was performed without contrast. Coronal an d sagittal reformats were performed. CT dose lowering techniques were used, to include: automated exp osure control, adjustment for patient size, and/or use of iterative reconstruction. Please note this examination is limited for certain types of pathology due to the lack of intravenous contrast. FINDINGS: Mediastinum and Nissa: There is no axillary, mediastinal or hilar lymphadenopathy. Pleural and Pericardial spaces: There are no pleural or pericardial effusions. Cardiovascular: There is mild vascular desiccation throughout the thoracic aorta without evidence of aneurysmal dilation. There is a right-sided Mediport with catheter tip in the superior vena cava. The re are moderate patchy coronary artery calcifications. The pulmonary arteries are normal in size. Lung Parenchyma and Airways: There is some very mild tree-in-bud areas of nodularity within the poste rior aspect of the right upper lobe as well as the anterior aspect of the right upper lobe which may relate to an inflammatory or atypical infectious process. There are a few linear bands of opacities o therwise seen throughout the lungs bilaterally which are likely atelectasis or scarring. There is no focal area of consolidation. ABDOMEN: Liver and Biliary system: Question of stent within the region of the common bile duct extending into the intrahepatic ducts on the left side. There appears to be some mild intrahepatic biliary ductal d ilation. The common bile duct is not well evaluated. Adrenal glands: Normal. Kidneys and ureters: There appears to be some residual contrast within the renal collecting systems b ilaterally likely from a recent contrast enhanced study. There is a cyst within the inferior pole of the right kidney measuring 2.5 cm in diameter. Spleen: Normal. Pancreas: Normal. Gallbladder: Normal. Lymph nodes, Peritoneum and mesentery: Some scattered retroperitoneal adenopathy is seen. There is a preaortic lymph node measuring up to 1.6 cm in short axis diameter with several nonenlarged lymph no cherise also seen. Gastrointestinal tract: There are no dilated loops of bowel or free intraperitoneal air. The appe ndix is not clearly seen with no secondary changes of appendicitis identified. Aorta/IVC: There is mild vascular calcification throughout the abdominal aorta without evidence of aneurysmal dilation. IVC normal. Abdominal wall: Normal. PELVIS: Fluid: There is no free fluid in the pelvis. Lymph Nodes: There is no pelvic or inguinal lymphadenopathy.. Urinary bladder: Normal. BONES: There are no osseous destructive lesions.. ADDITIONAL SIGNIFICANT FINDINGS: None. IMPRESSION: 1. Suspicion of a pancreatic head mass which is limited without contrast. Recommend contrast enhanced evaluation on a nonemergent basis. 2. Mild tree-in-bud areas of nodularity within the right lung may be inflammatory or due to an atypic al infectious process. 3. Enlarged preaortic lymph node of indeterminate significance could potentially represent a metastas is. Bones: No fracture or aggressive osseous lesion. IMPRESSION: 1. No acute abnormality in the chest.
[2023-04-18] MEDS: PIPERACILLIN-TAZOBACTAM 3.375 GM in SODIUM CHLORIDE 0.9% 100 ML IVPB SCH (15:17)
[2023-04-18 15:26] VITALS: BMI 18.3
[2023-04-18 15:40] LABS: Anisocytosis Moderate; Basophils % (A) 0 %; Eosinophils % (A) 2 %; HCT 26.4 % (39.0-53.0); HGB 8.8 gm/dL (13.0-17.5); Lymphocytes # (A) 0.5 k/uL (1.0-4.8); Lymphocytes % (A) 23 %; MCHC 33.2 g/dL (31.0-37.0); MCV 99.3 fL (80.0-100.0); Macrocytosis Moderate; Mean Platelet Volume 8.8; Monocytes # (A) 0.1 k/uL (0-1.0); Monocytes % (A) 3 %; Neutrophils # (A) 1.5 k/uL (1.3-7.7); Neutrophils % (A) 69 %; Platelet Count 122 k/uL (150-450); RBC 2.66 m/uL (4.30-5.90); RDW 20.3 % (11.5-15.5); WBC 2.2 k/uL (3.8-10.6)
[2023-04-18 15:48] LABS: ALT 75 U/L (4-49); AST 92 U/L (17-59); African American GFR (CKD) 74 (>60 ml/min/1.73 sqM); Albumin 3.1 g/dL (3.5-5.0); Alkaline Phosphatase 305 U/L (38-126); Anion Gap 8 mmol/L; Blood Urea Nitrogen 23 mg/dL (9-20); Calcium 8.5 mg/dL (8.4-10.2); Carbon Dioxide 21 mmol/L (22-30); Chloride 104 mmol/L (98-107); Glucose 107 mg/dL (74-99); Non-African American GFR(CKD) 64 (>60 ml/min/1.73 sqM); Potassium 3.8 mmol/L (3.5-5.1); Sodium 133 mmol/L (137-145); Total Bilirubin 0.8 mg/dL (0.2-1.3); Total Protein 5.7 g/dL (6.3-8.2)
[2023-04-18] MEDS: IPRATROPIUM-ALBUTEROL 3 ML NEB INHALATION SCH (15:56)
[2023-04-18] MEDS ORDERED: METOCLOPRAMIDE 10 MG TAB PO SCH (16:00)
[2023-04-18] MEDS ORDERED: SENNOSIDES 8.6 MG TAB PO SCH (21:00)
[2023-04-18] MEDS ORDERED: APIXABAN 5 MG TAB PO SCH (21:00)
[2023-04-18] MEDS ORDERED: VANCOMYCIN 1,000 MG in SODIUM CHLORIDE 0.9% 250 ML IVPB SCH (21:00)
[2023-04-18] MEDS: PROCHLORPERAZINE 10 MG TAB PO PRN (21:11)
--- NOTE | 2023-04-18 22:00 | P.CONS ---
History of Present Illness - Reason for Consult Consult date: 04/18/23 - History of Present Illness Patient is a 73-year-old male with a past medical history significant for hypertension hyperlipidemia metastatic cholangiocarcinoma on chemotherapy last chemo was on patient was brought into the hospital for evaluation of mental status changes apparently patient was noticed to have some mental status change while watching TV patient was noted to be very cold and then went unresponsive patient was nonverbal and would not respond to any commands no clear history of any seizure activities with the symptoms the patient was brought into the hospital on arrival to the ER the patient was noted to be febrile with a temperature of 102.7 F patient was tachycardic not hypotensive or hypoxic and no need for supplemental oxygen patient noted to be leukopenic with a white count of 1.3 BUN/creatinine has been mildly elevated lactic acid was elevated liver enzymes are elevated urine has been negative influenza RSV and COVID testing was negative patient did have a chest x-ray no acute cardiopulmonary disease process patient was started on vancomycin and Zosyn infectious disease was consulted concerning for febrile neutropenia Past Medical History Past Medical History: Cancer, Hyperlipidemia, Hypertension, Prostate Disorder Additional Past Medical History / Comment(s): "slightly high BP", gout, History of Any Multi-Drug Resistant Organisms: None Reported Past Surgical History: Appendectomy, Cholecystectomy, Orthopedic Surgery, Tonsillectomy Additional Past Surgical History / Comment(s): rach shoulder rotator cuff, Past Anesthesia/Blood Transfusion Reactions: No Reported Reaction Past Psychological History: No Psychological Hx Reported Smoking Status: Never smoker Past Alcohol Use History: None Reported Past Drug Use History: None Reported - Past Family History Father Family Medical History: Cancer Medications and Allergies Home Medications Medication Instructions Recorded Confirmed Type Tamsulosin [Flomax] 0.4 mg PO HS 05/26/16 04/18/23 History Acetaminophen/Codeine Liquid 5 ml PO Q6H PRN 04/18/23 04/18/23 History [Tylenol w/codeine Elixir] Apixaban [Eliquis] 5 mg PO BID 04/18/23 04/18/23 History HYDROcodone/APAP 7.5-325MG [[place] 1 tab PO TID PRN 04/18/23 04/18/23 History 7.5-325] Lipase/Protease/Amylase [Creon Dr 1 capsule PO QID 04/18/23 04/18/23 History 24,000 Unit Capsule] Metoclopramide HCl [Reglan] 10 mg PO TID 04/18/23 04/18/23 History Midodrine [ProAmatine] 5 mg PO BID@0830,1500 04/18/23 04/18/23 History Mirtazapine 15 mg PO HS 04/18/23 04/18/23 History Omeprazole [PriLOSEC] 20 mg PO DAILY 04/18/23 04/18/23 History Prochlorperazine [Compazine] 10 mg PO QID 04/18/23 04/18/23 History Sennosides [Senokot] 8.6 mg PO BID 04/18/23 04/18/23 History allopurinoL [Allopurinol] 100 mg PO HS 04/18/23 04/18/23 History Allergies Allergy/AdvReac Type Severity Reaction Status Date / Time No Known Allergies Allergy Verified 04/18/23 08:11 Physical Exam Vitals: Vital Signs Temp Pulse Resp BP Pulse Ox 04/18/23 08:00 98 16 130/80 100 04/18/23 03:44 112 H 18 145/97 97 04/18/23 03:14 103 H 18 99/67 98 04/18/23 03:00 101 H 18 136/91 95 04/18/23 02:44 116 H 17 136/91 95 04/18/23 02:14 102 H 18 116/74 98 04/18/23 02:00 110 H 17 127/76 04/18/23 01:44 127 H 18 127/76 98 04/18/23 01:14 110 H 18 139/86 94 L 04/18/23 00:44 110 H 17 139/86 94 L 04/18/23 00:14 110 H 18 102/63 95 04/17/23 23:44 105 H 17 117/70 95 04/17/23 23:14 109 H 17 131/80 94 L 04/17/23 22:44 116 H 18 119/76 04/17/23 22:33 99.4 F 04/17/23 22:14 147 H 18 110/69 94 L 04/17/23 21:59 126 H 17 124/77 95 04/17/23 21:44 135 H 17 95 04/17/23 21:41 142 H 19 165/86 93 L 04/17/23 21:29 135 H 17 95 04/17/23 21:14 130 H 17 132/92 95 04/17/23 20:59 128 H 17 95 04/17/23 20:49 102.7 F H 161 H 13 171/109 94 L Intake and Output 04/17/23 04/18/23 04/18/23 22:59 06:59 14:59 Other: Weight 53.07 kg Results CBC & Chem 7: 04/18/23 15:10 04/18/23 15:10 Labs: Abnormal Lab Results - Last 24 Hours (Table) 04/17/23 04/17/23 04/17/23 Range/Units 20:59 21:00 21:00 WBC 1.3 L* (3.8-10.6) k/uL RBC 2.60 L (4.30-5.90) m/uL Hgb 8.7 L (13.0-17.5) gm/dL Hct 25.6 L (39.0-53.0) % RDW 20.6 H (11.5-15.5) % Plt Count 132 L D (150-450) k/uL Neutrophils # 1.1 L (1.3-7.7) k/uL Lymphocytes # 0.2 L (1.0-4.8) k/uL Sodium 136 L (137-145) mmol/L Carbon Dioxide 19 L (22-30) mmol/L BUN 32 H (9-20) mg/dL Creatinine 1.47 H (0.66-1.25) mg/dL Glucose 152 H (74-99) mg/dL Plasma Lactic Acid Bryson (0.7-2.0) mmol/L AST 137 H (17-59) U/L ALT 81 H (4-49) U/L Alkaline Phosphatase 284 H (38-126) U/L Creatine Kinase 42 L (55-170) U/L Troponin I 0.040 H* (0.000-0.034) ng/mL Total Protein 6.2 L (6.3-8.2) g/dL Albumin 3.3 L (3.5-5.0) g/dL Urine Blood (Negative) Urine RBC (0-5) /hpf Urine Bacteria (None) /hpf Urine Mucus (None) /hpf 04/17/23 04/18/23 Range/Units 21:00 00:21 WBC (3.8-10.6) k/uL RBC (4.30-5.90) m/uL Hgb (13.0-17.5) gm/dL Hct (39.0-53.0) % RDW (11.5-15.5) % Plt Count (150-450) k/uL Neutrophils # (1.3-7.7) k/uL Lymphocytes # (1.0-4.8) k/uL Sodium (137-145) mmol/L Carbon Dioxide (22-30) mmol/L BUN (9-20) mg/dL Creatinine (0.66-1.25) mg/dL Glucose (74-99) mg/dL Plasma Lactic Acid Bryson 3.1 H* (0.7-2.0) mmol/L AST (17-59) U/L ALT (4-49) U/L Alkaline Phosphatase (38-126) U/L Creatine Kinase (55-170) U/L Troponin I (0.000-0.034) ng/mL Total Protein (6.3-8.2) g/dL Albumin (3.5-5.0) g/dL Urine Blood Small H (Negative) Urine RBC 7 H (0-5) /hpf Urine Bacteria Rare H (None) /hpf Urine Mucus Rare H (None) /hpf Assessment and Plan Plan: 1patient presented to hospital with sepsis in this patient who did have fever tachycardia leukopenia patient was noticed to be tender on abdominal examination concerning for possible abdominal source in this patient who did have history of metastatic cholangiocarcinoma currently on chemotherapy and will need to cover for the enteric gram-negative to the likely pathogen patient urine was ne gative chest x-ray reported negative for pneumonia no evidence of any cellulitis or joint swelling. 2we will obtain a CT abdominal pelvis with oral contrast only because of his mildly elevated creatinine 3-we will continue patient on Zosyn however discontinue vancomycin to decrease risk of nephrotoxicity We will follow on clinical condition and cultures to further adjust medication if needed Thank you for this consultation we will follow the patient along with you Dictation was produced using [employer] dictation software. please excuse any grammatical, word or spelling errors. Time with Patient: Greater than 30
--- NOTE | 2023-04-19 02:07 | EEG ---
DATE OF SERVICE: 04/18/2023 ELECTROENCEPHALOGRAM REPORT PREAMBLE: This is a 73-year-old male with transient encephalopathy. This study is performed to rule out any seizure-like activity. EEG FINDINGS: This is a 21-channel digital EEG recorded with video component, utilizing 10/20 international system with referential bipolar montages. Background consists of predominantly moderate amplitude bilaterally symmetric 5-7 hertz theta activity seen in bihemispheric region. Background does not seem to be clearly reactive to eye opening or closing. Photic driving response was not seen. Occasionally, the background does reach to alpha range. Deeper stages of sleep were not seen. No focal or generalized epileptiform activity was seen. IMPRESSION: This is an abnormal EEG due to background slowing of [id number] degree, suggestive of generalized cerebral dysfunction as can be seen with toxic metabolic encephalopathy or related to diffuse structural brain abnormality. Clinical correlation is recommended. No epileptiform activity was seen. MMODL / IJN: [id number] / MTDD
--- NOTE | 2023-04-19 04:52 | HP ---
HISTORY AND PHYSICAL HISTORY OF PRESENT ILLNESS: This is a 73-year-old male, metastatic bile duct cancer, previous CVA, with altered mental status. He has not felt well. Sudden onset of altered mental status while watching TV. He has MRI pending to rule out a stroke. He denied any seizure activity. He came back to the emergency room and was found to have come back to his normal baseline. He has had bile duct cancer, getting chemo after Whipple procedure, blood transfusion on . He had residual weakness right leg. Code stroke was activated. He spiked a fever in the ER. He has had not been having fever in the past, suspected he might have pneumonia on CT of his chest. HOME MEDICATIONS: 1. Uloric. 2. Zocor. 3. Flomax. 4. Cardura. PAST MEDICAL HISTORY: Chronic kidney disease, bile duct cancer, prostate disorder, COPD, and hypertension. PAST SURGICAL HISTORY: Appendectomy, cholecystectomy, orthopedic surgery, and tonsillectomy. FAMILY HISTORY: Father with cancer. PHYSICAL EXAMINATION: GENERAL: Altered mental status. He is alert, is following commands. HEENT: Normocephalic, atraumatic. LUNGS: Decreased breath sounds, scattered rhonchi, wheeze. CARDIOVASCULAR: S1, S2. ABDOMEN: Soft. EXTREMITIES: No edema. NEUROLOGIC: Cranial nerves intact. PSYCH: Fair mood and affect. VITAL SIGNS: T-max 102.7, pulse is 130s to 140s, blood pressure 130s to 170s. ASSESSMENT: Possible sepsis secondary to pneumonia and pancytopenia. We will get Pulmonary involved in Infectious Disease, Neurology is seen for possible CVA. MRI of the brain is pending. Acute on chronic renal insufficiency, anemia. Rehydration will be done for lactic acidosis, appears to be dehydrated. Cardiology to see for elevated troponins 0.4 up to 1.7 to 0.7. Liver enzymes are elevated. CT of the chest and abdomen is appreciated. Prognosis guarded. Please see further orders. MMODL / IJN: [id number] /
[2023-04-19 07:39] LABS: Anisocytosis Moderate; Basophils % (A) 0 %; Eosinophils % (A) 1 %; HCT 23.4 % (39.0-53.0); HGB 7.8 gm/dL (13.0-17.5); Lymphocytes # (A) 0.6 k/uL (1.0-4.8); Lymphocytes % (A) 30 %; MCHC 33.3 g/dL (31.0-37.0); MCV 99.2 fL (80.0-100.0); Macrocytosis Moderate; Mean Platelet Volume 8.6; Monocytes # (A) 0.1 k/uL (0-1.0); Monocytes % (A) 3 %; Neutrophils # (A) 1.2 k/uL (1.3-7.7); Neutrophils % (A) 62 %; Platelet Count 110 k/uL (150-450); RBC 2.36 m/uL (4.30-5.90); RDW 20.1 % (11.5-15.5)
[2023-04-19 08:01] LABS: ALT 58 U/L (4-49); AST 58 U/L (17-59); African American GFR (CKD) 74 (>60 ml/min/1.73 sqM); Albumin 2.7 g/dL (3.5-5.0); Alkaline Phosphatase 271 U/L (38-126); Anion Gap 6 mmol/L; Blood Urea Nitrogen 20 mg/dL (9-20); Calcium 8.4 mg/dL (8.4-10.2); Carbon Dioxide 21 mmol/L (22-30); Chloride 105 mmol/L (98-107); Glucose 93 mg/dL (74-99); Non-African American GFR(CKD) 64 (>60 ml/min/1.73 sqM); Potassium 3.5 mmol/L (3.5-5.1); Sodium 132 mmol/L (137-145); Total Bilirubin 0.6 mg/dL (0.2-1.3); Total Protein 5.2 g/dL (6.3-8.2)
[2023-04-19] MEDS ORDERED: NON FORMULARY DRUG (Omeprazole 20 MG Capsule.Dr) PO SCH (09:00)
[2023-04-19] MEDS ORDERED: IPRATROPIUM-ALBUTEROL 3 ML NEB INHALATION PRN (09:11)
[2023-04-19 11:35] LABS: Chol/HDL Ratio 3.06 Ratio; LDL Cholesterol,Calculated 92.7 mg/dL (0.0-131.0); VLDL Calculation 19.82 mg/dL (5.00-40.00)
--- NOTE | 2023-04-19 11:49 | P.CRDCN ---
History of Present Illness History of present illness: HISTORY OF PRESENT ILLNESS: This is a 73-year-old male with a past medical history significant for CVA, DVT on Eliquis, and metastatic bile duct cancer with previous Whipple. Patient does not follow with a glass mechanic. We have been asked to see the patient in consultation for elevated troponins. Patient examined at the bedside in the emergency room. Patient's family is at the bedside. Patient's family states that the patient was extremely cold yesterday and was shaking. They state that they tried to place blankets on him but he continued to feel cold. They ended up bringing him to the hospital where he was found to be febrile with a fever of 102.7. Patient also developed transient speech difficulty and right leg weakness and neurology was consulted for further evaluation. DIAGNOSTICS: - EKG reveals sinus tachycardia - Chest xray negative for acute process. - Laboratory data: WBC 2.0. Hemoglobin 7.8. Platelet count 110. Sodium 133. Potassium 3.8. BUN 23. Creatinine 1.14. Troponin 0.040. 0.078. 0.073. - Current home cardiac medications include Eliquis 5 mg twice a day, midodrine 5 mg twice a day. -No previous echocardiogram or cardiac catheterization available for review REVIEW OF SYSTEMS: At the time of my exam: CONSTITUTIONAL: Denies fever or chills. HEENT: Denies blurred vision, vision changes, or eye pain. Denies hemoptysis CARDIOVASCULAR: Denies chest pain. Denies orthopnea. Denies PND. Denies palpitations RESPIRATORY: Denies shortness of breath. GASTROINTESTINAL: Denies abdominal pain. Denies nausea or vomiting. HEMATOLOGIC: Denies bleeding disorders. GENITOURINARY: Denies any blood in urine. SKIN: Denies pruitis. Denies rash. PHYSICAL EXAM: VITAL SIGNS: Reviewed. GENERAL: Well-developed in no acute distress. HEENT: Head is normocephalic. Pupils are equal, round. Sclerae anicteric. Mucous membranes of the mouth are moist. Neck supple. No JVD or thyromegaly LUNGS: Respirations even and unlabored. Lungs essentially clear to auscultation bilaterally. HEART: Regular rate and rhythm. S1 and S2 heard. ABDOMEN: Soft. Nondistended. Nontender. EXTREMITIES: Normal range of motion. No clubbing or cyanosis. Peripheral pulses intact. No lower extremity edema NEUROLOGIC: Awake and alert. Oriented x 3. ASSESSMENT: Altered mental status Febrile illness, 102.7 on admission Possible TIA with transient speech difficulty and right leg weakness History of CVA, 10/2022 Elevated of DVT, 10/2022 on Eliquis History of metastatic bile duct cancer; status post Whipple Pancytopenia Elevated troponins, flat, not suggestive of acute coronary syndrome Elevated liver enzymes PLAN: An acute coronary event has been ruled out Obtain 2D echo to assess cardiac structure and function Continue Eliquis Continue telemetry monitoring Neurology and infectious disease are following Further recommendations pending patient course Nurse practitioner note has been reviewed by physician. Signing provider agrees with the documented findings, assessment, and plan of care documented by FURNACE RELINER as a scribe. Past Medical History Past Medical History: Cancer, Hyperlipidemia, Hypertension, Prostate Disorder Additional Past Medical History / Comment(s): "slightly high BP", gout, History of Any Multi-Drug Resistant Organisms: None Reported Past Surgical History: Appendectomy, Cholecystectomy, Orthopedic Surgery, Tonsillectomy Additional Past Surgical History / Comment(s): rach shoulder rotator cuff, Past Anesthesia/Blood Transfusion Reactions: No Reported Reaction Past Psychological History: No Psychological Hx Reported Smoking Status: Never smoker Past Alcohol Use History: None Reported Past Drug Use History: None Reported - Past Family History Father Family Medical History: Cancer Medications and Allergies Home Medications Medication Instructions Recorded Confirmed Type Tamsulosin [Flomax] 0.4 mg PO HS 05/26/16 04/18/23 History Acetaminophen/Codeine Liquid 5 ml PO Q6H PRN 04/18/23 04/18/23 History [Tylenol w/codeine Elixir] Apixaban [Eliquis] 5 mg PO BID 04/18/23 04/18/23 History HYDROcodone/APAP 7.5-325MG [[place] 1 tab PO TID PRN 04/18/23 04/18/23 History 7.5-325] Lipase/Protease/Amylase [Creon Dr 1 capsule PO QID 04/18/23 04/18/23 History 24,000 Unit Capsule] Metoclopramide HCl [Reglan] 10 mg PO TID 04/18/23 04/18/23 History Midodrine [ProAmatine] 5 mg PO BID@0830,1500 04/18/23 04/18/23 History Mirtazapine 15 mg PO HS 04/18/23 04/18/23 History Omeprazole [PriLOSEC] 20 mg PO DAILY 04/18/23 04/18/23 History Prochlorperazine [Compazine] 10 mg PO QID 04/18/23 04/18/23 History Sennosides [Senokot] 8.6 mg PO BID 04/18/23 04/18/23 History allopurinoL [Allopurinol] 100 mg PO HS 04/18/23 04/18/23 History Allergies Allergy/AdvReac Type Severity Reaction Status Date / Time No Known Allergies Allergy Verified 04/18/23 08:11 Physical Exam Vitals: Vital Signs Pulse Resp BP Pulse Ox 04/19/23 06:12 80 18 132/89 98 04/19/23 03:00 74 18 130/80 96 04/18/23 23:00 85 18 132/80 99 04/18/23 19:00 90 18 137/88 99 04/18/23 17:00 75 16 138/68 96 04/18/23 16:00 85 16 145/68 96 04/18/23 11:00 68 16 128/68 98 04/18/23 08:00 98 16 130/80 100 Results 04/19/23 06:00 04/19/23 06:00 Cardiac Enzymes 04/18/23 04/18/23 04/18/23 Range/Units 11:00 15:10 15:10 AST 92 H (17-59) U/L Troponin I 0.078 H* 0.073 H* (0.000-0.034) ng/mL CBC 04/18/23 04/19/23 Range/Units 15:10 06:00 WBC 2.2 L 2.0 L (3.8-10.6) k/uL RBC 2.66 L 2.36 L (4.30-5.90) m/uL Hgb 8.8 L 7.8 L (13.0-17.5) gm/dL Hct 26.4 L 23.4 L (39.0-53.0) % Plt Count 122 L 110 L (150-450) k/uL Comprehensive Metabolic Panel 04/18/23 Range/Units 15:10 Sodium 133 L (137-145) mmol/L Potassium 3.8 (3.5-5.1) mmol/L Chloride 104 (98-107) mmol/L Carbon Dioxide 21 L (22-30) mmol/L BUN 23 H (9-20) mg/dL Creatinine 1.14 (0.66-1.25) mg/dL Glucose 107 H (74-99) mg/dL Calcium 8.5 (8.4-10.2) mg/dL AST 92 H (17-59) U/L ALT 75 H (4-49) U/L Alkaline Phosphatase 305 H (38-126) U/L Total Protein 5.7 L (6.3-8.2) g/dL Albumin 3.1 L (3.5-5.0) g/dL Current Medications Generic Name Dose Route Start Last Admin Trade Name Freq PRN Reason Stop Dose Admin Acetaminophen 650 mg 04/18/23 01:23 Acetaminophen Tab 325 Mg Tab PO Q6HR PRN Pain Hydrocodone Bitart/Acetaminophen 1 each 04/18/23 12:45 Hydrocodone/Apap 7.5-325mg 1 Each Tab PO TID PRN Pain Albuterol/Ipratropium 3 ml 04/18/23 16:00 04/18/23 19:33 Ipratropium-Albuterol 3 Ml Neb INHALATION Not Given RT-QID [facility] Allopurinol 100 mg 04/18/23 01:05 04/18/23 10:17 Allopurinol 100 Mg Tab PO 100 mg DAILY [facility] Administration Lipase/Protease/Amylase 1 each 04/18/23 13:00 04/18/23 21:11 Lipase 20,000/Protease 63,000/Amylase 84,000 PO 1 each QID [facility] Administration Apixaban 5 mg 04/18/23 01:15 04/18/23 21:00 Apixaban 5 Mg Tab PO 5 mg BID [facility] Administration Protocol Sodium Chloride 1,000 mls @ 130 mls/hr 04/18/23 01:15 04/18/23 23:38 Saline 0.9% IV Not Given .Q7H42M [facility] Piperacillin Sod/Tazobactam 100 mls @ 25 mls/hr 04/18/23 16:00 04/18/23 23:50 Sod 3.375 gm/ Sodium Chloride IVPB 25 mls/hr Q8HR [facility] Administration Protocol Iopamidol 30 ml 04/18/23 12:08 Iopamidol Contrast (Oral Use) Vial PO 04/19/23 12:[address] Scan Metoclopramide HCl 10 mg 04/18/23 01:15 04/18/23 21:16 Metoclopramide 10 Mg Tab PO 10 mg TID [facility] Administration Midodrine 5 mg 04/18/23 15:00 04/18/23 14:41 Midodrine 5 Mg Tab PO Not Given BID@0830,1500 [facility] Mirtazapine 15 mg 04/18/23 21:00 04/18/23 21:00 Mirtazapine 15 Mg Tab PO 15 mg HS [facility] Administration Pantoprazole Sodium 40 mg 04/18/23 07:30 04/18/23 17:25 Pantoprazole 40 Mg Tablet PO 40 mg AC-BID [facility] Administration Prochlorperazine Maleate 10 mg 04/18/23 06:00 Prochlorperazine 10 Mg Tab PO Q6HR PRN Nausea And Vomiting Senna 8.6 mg 04/18/23 01:15 04/18/23 20:59 Sennosides 8.6 Mg Tab PO 8.6 mg BID [facility] Administration Tamsulosin HCl 0.4 mg 04/18/23 21:00 04/18/23 21:00 Tamsulosin 0.4 Mg Cap.Er.24h PO 0.4 mg HS [facility] Administration 04/19/23 06:00 04/18/23 15:10
--- NOTE | 2023-04-19 12:13 | MR ---
EXAMINATION TYPE: MR brain wo con DATE OF EXAM: 04/19/2023 10:40 AM CLINICAL INDICATION:Male, 73 years old with history of Neuro deficit, acute, stroke suspected; PHH, N euro deficit. COMPARISON: 04/17/2023. TECHNIQUE: Multi planar, multi sequence imaging was performed through the brain including: T1, T2, In version recovery, Diffusion weighted imaging, and gradient echo imaging. No gadolinium was given. FINDINGS: Remote injury to the left cerebellum as well as left basal ganglia extending to the bach radiata. Few scattered foci of restricted diffusion are present and bilaterally along the JV MCA vicky ershed region on the left there is at least 3 areas present series 3 image 192 and the right series 3 image 200. Other areas along the cortex left greater than right are also present. The foley-white junctions, ventricular system, basal cisterns appear unremarkable. Scattered foci of high T2 signal intensity are seen within the periventricular white matter. Midline structures show n o abnormality. Diffusion-weighted imaging shows no evidence of restricted diffusion. The susceptibili ty weighted images do not reveal any evidence for micro-hemorrhage. The bone marrow signal is within normal limits. Paranasal sinuses and mastoid air cells: No significant paranasal sinus disease. Visualized orbits: Orbital contents are intact. IMPRESSION: 1. Scattered acute/subacute CVA foci that are near the JV MCA watershed region and along the cortex. Correlate for embolic phenomenon. 2. Nonspecific white matter changes, likely secondary to small vessel ischemic disease. 3. Remote injury to the left cerebellum and left basal ganglia extending into the left bach radiata .
--- NOTE | 2023-04-19 14:21 | P.CNPUL ---
History of Present Illness Consult date: 04/19/23 Reason for consult: COPD Chief complaint: Altered mental status History of present illness: Patient is a 73-year-old male with the past medical history of metastatic biliary cancer history of CVA in the past presented emergency department with altered mental status, patient was at home was feeling not well started having confusion and also having a lot of chills patient was nonverbal and noncommunicative brought into emergency department for further evaluation. Patient has significant history of biliary cancer diagnosed early last year has been on chemotherapy from [facility], in emergency department and computed tomography scan of the head no acute changes identified, patient has been admitted into the hospital further workup evaluation includes white cell count is 2000 hemoglobin and hematocrit 7.8/23.4 platelets 110 sodium is 132% 2.5 BUN/creatinine 20/1.15 glucose is 93 troponin 0.03 alk phos is 305 to 271 AST and ALT were 92/75 subsequently 58/58. Blood cultures 2, computed tomography scan of the chest abdominal pelvis pancreatic mass noted right lung tree and bud appearance nodularity noted sugg estive of inflammatory process, patient does have enlarged paratracheal lymph nodes. MRI positive for acute/subacute CVA foci along a CTA and MCA watershed area with his appearance of remote injury to the left cerebellum and left basal ganglia along with involvement of the left coronary radiator. Currently patient is on bronchodilators with albuterol and ipratropium, direct acting or alcohol intake organ L Franco, Zosyn along with midodrine Review of Systems All systems: negative Past Medical History Past Medical History: Cancer, Hyperlipidemia, Hypertension, Prostate Disorder Additional Past Medical History / Comment(s): "slightly high BP", gout, History of Any Multi-Drug Resistant Organisms: None Reported Past Surgical History: Appendectomy, Cholecystectomy, Orthopedic Surgery, Tonsillectomy Additional Past Surgical History / Comment(s): rach shoulder rotator cuff, Past Anesthesia/Blood Transfusion Reactions: No Reported Reaction Past Psychological History: No Psychological Hx Reported Smoking Status: Never smoker Past Alcohol Use History: None Reported Past Drug Use History: None Reported - Past Family History Father Family Medical History: Cancer Medications and Allergies Home Medications Medication Instructions Recorded Confirmed Type Tamsulosin [Flomax] 0.4 mg PO HS 05/26/16 04/18/23 History Acetaminophen/Codeine Liquid 5 ml PO Q6H PRN 04/18/23 04/18/23 History [Tylenol w/codeine Elixir] Apixaban [Eliquis] 5 mg PO BID 04/18/23 04/18/23 History HYDROcodone/APAP 7.5-325MG [[place] 1 tab PO TID PRN 04/18/23 04/18/23 History 7.5-325] Lipase/Protease/Amylase [Creon Dr 1 capsule PO QID 04/18/23 04/18/23 History 24,000 Unit Capsule] Metoclopramide HCl [Reglan] 10 mg PO TID 04/18/23 04/18/23 History Midodrine [ProAmatine] 5 mg PO BID@0830,1500 04/18/23 04/18/23 History Mirtazapine 15 mg PO HS 04/18/23 04/18/23 History Omeprazole [PriLOSEC] 20 mg PO DAILY 04/18/23 04/18/23 History Prochlorperazine [Compazine] 10 mg PO QID 04/18/23 04/18/23 History Sennosides [Senokot] 8.6 mg PO BID 04/18/23 04/18/23 History allopurinoL [Allopurinol] 100 mg PO HS 04/18/23 04/18/23 History Allergies Allergy/AdvReac Type Severity Reaction Status Date / Time No Known Allergies Allergy Verified 04/18/23 08:11 Physical Exam Vitals: Vital Signs Pulse Resp BP Pulse Ox 04/19/23 14:01 94 18 120/78 98 04/19/23 10:00 93 18 125/96 98 04/19/23 09:10 95 04/19/23 06:12 80 18 132/89 98 04/19/23 03:00 74 18 130/80 96 04/18/23 23:00 85 18 132/80 99 04/18/23 19:00 90 18 137/88 99 04/18/23 17:00 75 16 138/68 96 04/18/23 16:00 85 16 145/68 96 - Constitutional General appearance: cooperative, disheveled - EENT Eyes: EOMI, PERRLA ENT: normal oropharynx Ears: bilateral: normal - Neck Carotids: bilateral: upstroke normal Thyroid: bilateral: normal size - Respiratory Respiratory: bilateral: CTA - Cardiovascular Rhythm: regular Heart sounds: normal: S1, S2 - Gastrointestinal General gastrointestinal: normal bowel sounds - Neurologic Neurologic: CNII-XII intact, focal deficits - Musculoskeletal Musculoskeletal: gait normal, generalized weakness, right sided weakness Results - Laboratory Findings CBC and BMP: 04/19/23 06:00 04/19/23 06:00 PT/INR, D-dimer PT 10.9 sec (10.0-12.5) 04/17/23 21:00 INR 1.0 (<1.2) 04/17/23 21:00 Abnormal lab findings: Abnormal Labs 04/17/23 04/17/23 04/17/23 20:59 21:00 21:00 WBC 1.3 L* RBC 2.60 L Hgb 8.7 L Hct 25.6 L RDW 20.6 H Plt Count 132 L D Neutrophils # 1.1 L Lymphocytes # 0.2 L Sodium 136 L Carbon Dioxide 19 L BUN 32 H Creatinine 1.47 H Glucose 152 H Plasma Lactic Acid Bryson AST 137 H ALT 81 H Alkaline Phosphatase 284 H Creatine Kinase 42 L Troponin I 0.040 H* Total Protein 6.2 L Albumin 3.3 L Urine Blood Urine RBC Urine Bacteria Urine Mucus 04/17/23 04/18/23 04/18/23 21:00 00:21 11:00 WBC RBC Hgb Hct RDW Plt Count Neutrophils # Lymphocytes # Sodium Carbon Dioxide BUN Creatinine Glucose Plasma Lactic Acid Bryson 3.1 H* AST ALT Alkaline Phosphatase Creatine Kinase Troponin I 0.078 H* Total Protein Albumin Urine Blood Small H Urine RBC 7 H Urine Bacteria Rare H Urine Mucus Rare H 04/18/23 04/18/23 04/18/23 15:10 15:10 15:10 WBC 2.2 L RBC 2.66 L Hgb 8.8 L Hct 26.4 L RDW 20.3 H Plt Count 122 L Neutrophils # Lymphocytes # 0.5 L Sodium 133 L Carbon Dioxide 21 L BUN 23 H Creatinine Glucose 107 H Plasma Lactic Acid Bryson AST 92 H ALT 75 H Alkaline Phosphatase 305 H Creatine Kinase Troponin I 0.073 H* Total Protein 5.7 L Albumin 3.1 L Urine Blood Urine RBC Urine Bacteria Urine Mucus 04/19/23 04/19/23 06:00 06:00 WBC 2.0 L RBC 2.36 L Hgb 7.8 L Hct 23.4 L RDW 20.1 H Plt Count 110 L Neutrophils # 1.2 L Lymphocytes # 0.6 L Sodium 132 L Carbon Dioxide 21 L BUN Creatinine Glucose Plasma Lactic Acid Bryson AST ALT 58 H Alkaline Phosphatase 271 H Creatine Kinase Troponin I Total Protein 5.2 L Albumin 2.7 L Urine Blood Urine RBC Urine Bacteria Urine Mucus - Diagnostic Findings Chest x-ray: report reviewed, image reviewed CT scan - chest: report reviewed, image reviewed Assessment and Plan Assessment: COPD not in exacerbation, continue bronchodilators hold on steroids Right-sided pneumonia aspiration versus healthcare associated likely aspiration patient is appropriately being treated with IV Zosyn would recommend to 7-10 day therapy Acute CVA with right-sided weakness more so on the leg compared to upper extremity, MRI suggestive of the acute to subacute stroke in JV and MCA watershed territory Biliary tract cancer on chemotherapy Cachexia and weight loss with component of protein calorie malnourishment Plan: Continue antibiotics IV Zosyn Continue bronchodilator with DuoNeb 4 times a day as needed PT OT evaluation Continue anticoagulation and DVT prophylaxis patient on and requests Increase nutritional support Time with Patient: Greater than 30
--- NOTE | 2023-04-19 15:29 | P.PN ---
Progress Note - Text Progress Note Date: 04/19/23 Hospital course: I am rounding for Dr. Hermann Hassan. April 19, 2023:: Admitted with p cytopenia, sepsis. Decreased appetite. Some loose bowel movements. Presented with transient right leg weakness and transient speech difficulty. 4 months ago patient had a stroke with some residual word finding difficulty. Patient admitted with also sepsis. On IV Zosyn. Blood cultures are pending. Daughter at the bedside. Patient tired. Send stool for C. difficile. IV fluids. Active Medications Acetaminophen (Acetaminophen Tab 325 Mg Tab) 650 mg PO Q6HR PRN PRN Reason: Pain Hydrocodone Bitart/Acetaminophen (Hydrocodone/Apap 7.5-325mg 1 Each Tab) 1 each PO TID PRN PRN Reason: Pain Albuterol/Ipratropium (Ipratropium-Albuterol 3 Ml Neb) 3 ml INHALATION RT-QID PRN PRN Reason: Shortness Of Breath Or Wheezing Allopurinol (Allopurinol 100 Mg Tab) 100 mg PO DAILY [facility] Last Admin: 04/19/23 08:13 Dose: 100 mg Lipase/Protease/Amylase (Lipase 20,000/Protease 63,000/Amylase 84,000) 1 each PO QID [facility] Last Admin: 04/19/23 14:04 Dose: 1 each Apixaban (Apixaban 5 Mg Tab) 5 mg PO BID [facility]; Protocol Last Admin: 04/19/23 08:13 Dose: 5 mg Sodium Chloride (Saline 0.9%) 1,000 mls @ 130 mls/hr IV .Q7H42M [facility] Last Admin: 04/19/23 08:28 Dose: 130 mls/hr Piperacillin Sod/Tazobactam (Sod 3.375 gm/ Sodium Chloride) 100 mls @ 25 mls/hr IVPB Q8HR [facility]; Protocol Last Admin: 04/19/23 08:14 Dose: 25 mls/hr Metoclopramide HCl (Metoclopramide 10 Mg Tab) 10 mg PO TID [facility] Last Admin: 04/19/23 08:14 Dose: 10 mg Midodrine (Midodrine 5 Mg Tab) 5 mg PO BID@0830,1500 [facility] Last Admin: 04/19/23 08:13 Dose: 5 mg Mirtazapine (Mirtazapine 15 Mg Tab) 15 mg PO HS [facility] Last Admin: 04/18/23 21:00 Dose: 15 mg Pantoprazole Sodium (Pantoprazole 40 Mg Tablet) 40 mg PO AC-BID [facility] Last Admin: 04/19/23 08:13 Dose: 40 mg Prochlorperazine Maleate (Prochlorperazine 10 Mg Tab) 10 mg PO Q6HR PRN PRN Reason: Nausea And Vomiting Senna (Sennosides 8.6 Mg Tab) 8.6 mg PO BID [facility] Last Admin: 04/19/23 08:13 Dose: 8.6 mg Tamsulosin HCl (Tamsulosin 0.4 Mg Cap.Er.24h) 0.4 mg PO [facility] Last Admin: 04/18/23 21:00 Dose: 0.4 mg On examination: VITAL SIGNS: [Afebrile, 94, 18, 120/78, 98% room air] GENERAL APPEARANCE: BMI 18.3, laying in bed awake tired HEENT: Normal external appearance of nose and ear. Oral cavity normal EYES: Pupils equal. Conjunctiva normal. NECK: JVD not raised. Mass not palpable. RESPIRATORY: Respiratory effort normal. Lungs clear to auscultation. CARDIOVASCULAR: First and second sounds normal. No edema. ABDOMEN: Soft. Liver and spleen not palpable. No tenderness. No mass palpable. PSYCHIATRY: Alert and oriented x3. Mood and affect normal. INVESTIGATIONS, reviewed in the clinical context: MRI brain without contrast [April 18]: Scattered acute/subacute CVA foci that are near the JV MCA watershed region along the cortex. Remote injury to the left cerebellum and left basal ganglia extending into the left bach radiata. EKG tracing personally reviewed by me-normal sinus rhythm EEG: Suggestive of cerebral dysfunction. No epileptiform activity. CT chest, abdomen pelvis: Suspicion of a pancreatic head mass which is limited without contrast. CT angio head and neck: No dissection. Right upper lobe nodules. Assessment plan: -Acute/subacute stroke with scattered area near the JV, MCA watershed region along the cortex. Suggestive of embolic phenomena. Had a stroke 4 months ago with residual of difficulty finding words. Note patient is on Eliquis. Being followed by neurology -GERD Prilosec -BPH Flomax -Chronic gout Allopurinol -Positive troponin. No acute coronary syndrome. Seen by cardiology -Sepsis with pancytopenia presentation IV Zosyn. Being followed by ID. Vancomycin was discontinued. Workup in place -Metastatic bile duct cancer Chemotherapy. -Some anorexia secondary underlying malignancy and chemotherapy Encourage oral intake -Moderate protein calorie malnutrition from decreased oral intake from underlying malignancy Ensure -Acute diarrhea. Had recently chemotherapy No abdominal pain. Rule out C. difficile -Full code IV Zosyn. IV fluids. Discussed with patient daughter at the bedside.
[2023-04-19] MEDS: LACTATED RINGERS 1,000 ML IV SCH (16:12)
[2023-04-19] MEDS: HYDROcodone/APAP 7.5-325MG 1 EACH TAB PO PRN (17:50)
--- NOTE | 2023-04-20 09:25 | P.PN ---
Subjective Progress Note Date: 04/19/23 Patient was seen for follow-up. Patient's was present as well. She mentions that patient has improved. He is better, patient denies any headache. Patient's mentions that since he had a stroke 4 months ago, he has residual difficulty with speech, in which he has difficulty with recalling, and with communication. Sometimes he has trouble with manipulating the phone. 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 He underwent oral chemotherapy in summer 2022 but it was not working therefore he was switched to IV chemotherapy in fall 2022 which he is still receiving and the last 1 was on , 04/14/2023. Objective - Vital Signs Vital signs: Vital Signs Temp 99.4 F 04/17/23 22:33 Pulse 94 04/19/23 14:01 Resp 18 04/19/23 14:01 BP 120/78 04/19/23 14:01 Pulse Ox 98 04/19/23 14:01 FiO2 Intake & Output 04/18/23 04/19/23 04/19/23 18:59 06:59 18:59 Weight 53.07 kg - Exam Patient is alert and awake. He denies headache. Patient knows it is April 2023. He is able to name objects and can repeat very well. Rest of the examination is unchanged. - Labs CBC & Chem 7: 04/19/23 06:00 04/19/23 06:00 Labs: Abnormal Lab Results - Last 24 Hours (Table) 04/19/23 04/19/23 Range/Units 06:00 06:00 WBC 2.0 L (3.8-10.6) k/uL RBC 2.36 L (4.30-5.90) m/uL Hgb 7.8 L (13.0-17.5) gm/dL Hct 23.4 L (39.0-53.0) % RDW 20.1 H (11.5-15.5) % Plt Count 110 L (150-450) k/uL Neutrophils # 1.2 L (1.3-7.7) k/uL Lymphocytes # 0.6 L (1.0-4.8) k/uL Sodium 132 L (137-145) mmol/L Carbon Dioxide 21 L (22-30) mmol/L ALT 58 H (4-49) U/L Alkaline Phosphatase 271 H (38-126) U/L Total Protein 5.2 L (6.3-8.2) g/dL Albumin 2.7 L (3.5-5.0) g/dL Microbiology - Last 24 Hours (Table) 04/17/23 21:15 Blood Culture - Preliminary Blood 04/17/23 21:00 Blood Culture - Preliminary Blood Assessment and Plan Assessment: * Recurrent ischemic strokes involving bilateral hemispheric region. MRI of the brain revealed scattered acute/subacute CVA foci that are near the JV/MCA watershed region and along the cortex. Correlate for embolic phenomenon. Patient was already on Eliquis 5 mg twice daily therefore uncertain as to the cause of recurrent strokes. Need to rule out cardioembolic source. Need to rule out vegetations. * Patient's stroke symptoms manifested with transient speech difficulty and right leg weakness, that resolved in about 30 to 45 minutes. Patient also had amaurosis fugax left eye about couple days prior to arrival. 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 * Altered mental status, likely due to metabolic encephalopathy. * Pancytopenia, with severe leukopenia, likely from chemotherapy * Fever * Mild renal insufficiency * Hyponatremia * Elevated liver enzymes * Borderline evaded cardiac enzymes * Lactic acidosis, possible due to sepsis * History of metastatic cholangiocarcinoma, currently on chemotherapy. Plan: * MRI of the brain revealed scattered acute/subacute CVA foci that are near the JV MCA watershed region and along the cortex. Correlate for embolic phenomenon. Nonspecific white matter changes, likely secondary to small vessel ischemic disease. Remote injury to the left cerebellum and left basal ganglia, extending into the left bach radiator. I personally reviewed MRI agree with the findings. * Await 2D echo results, although it has been completed. * We will consider transesophageal echocardiogram, to rule out vegetation. Cardiology already on board. * CTA of head and neck revealed no evidence of dissection of the cervical internal carotid arteries or vertebral arteries or any evidence of significant stenosis at the carotid bifurcations. No evidence of intracranial high-grade stenosis or intracranial aneurysm. Right upper lobe nodule which should be reassessed future resolution 1 to 2 months. This later to be addressed by IM. * EEG was abnormal due to background slowing of mild to moderate degree, suggestive of generalized cerebral dysfunction as can be seen with toxic metabolic encephalopathy or related to diffuse structural brain abnormality. Clinical correlation is recommended. No epileptiform activity was seen. * Patient is currently on Eliquis 5 mg twice daily, compliant with the medication. * Hemoglobin A1c 5.6, fasting lipid panel with cholesterol 167, LDL 92, HDL 54, triglycerides 99. Patient's LFTs are mildly elevated. We will start low-dose statins, Lipitor 20 mg daily to target LDL <70. * Infectious disease on board for sepsis, currently on Zosyn. Patient denies headache. No evidence of meningitis. * Evaluation of other medical conditions as mentioned above, as per IM and other specialties. * Discussed with patient's in detail.
[2023-04-20 09:40] LABS: African American GFR (CKD) 65 (>60 ml/min/1.73 sqM); Non-African American GFR(CKD) 56 (>60 ml/min/1.73 sqM)
--- NOTE | 2023-04-20 11:59 | P.PN ---
Subjective Progress Note Date: 04/19/23 Principal diagnosis: Reason for follow-up is fever possible cholangitis Patient is a 73-year-old male with a past medical history significant for hypertension hyperlipidemia metastatic cholangiocarcinoma on chemotherapy last chemo was on 04/14/2023 patient was brought into the hospital for evaluation of mental status changes, chest x-ray and CT of the chest was negative patient did have a CT abdominal pelvis did shows pancreatic head mass stent with the region of common bile duct extending into the intrahepatic ducts on the left side. On today's visit that is 04/19/2023,the patient did have resolution of his fever and afebrile this morning, patient is breathing comfortably on room air, the patient denies chest pain shortness of breath and no significant cough, patient denies abdominal pain, no nausea vomiting or diarrhea Patient white count is 2.0, creatinine is 1.15 Objective - Vital Signs Vital signs: Vital Signs Temp 99.4 F 04/17/23 22:33 Pulse 80 04/19/23 06:12 Resp 18 04/19/23 06:12 BP 132/89 04/19/23 06:12 Pulse Ox 95 04/19/23 09:10 FiO2 Intake & Output 04/18/23 04/19/23 04/19/23 18:59 06:59 18:59 Weight 53.07 kg - Exam GENERAL DESCRIPTION: An elderly male lying in bed in no distress RESPIRATORY SYSTEM: Unlabored breathing , decreased breath sounds at bases HEART: S1 S2 regular rate and rhythm , ABDOMEN: Soft , no tenderness EXTREMITIES: No edema feet - Labs CBC & Chem 7: 04/19/23 06:00 04/20/23 07:54 Labs: Abnormal Lab Results - Last 24 Hours (Table) 04/18/23 04/18/23 04/18/23 Range/Units 11:00 15:10 15:10 WBC 2.2 L (3.8-10.6) k/uL RBC 2.66 L (4.30-5.90) m/uL Hgb 8.8 L (13.0-17.5) gm/dL Hct 26.4 L (39.0-53.0) % RDW 20.3 H (11.5-15.5) % Plt Count 122 L (150-450) k/uL Neutrophils # (1.3-7.7) k/uL Lymphocytes # 0.5 L (1.0-4.8) k/uL Sodium (137-145) mmol/L Carbon Dioxide (22-30) mmol/L BUN (9-20) mg/dL Glucose (74-99) mg/dL AST (17-59) U/L ALT (4-49) U/L Alkaline Phosphatase (38-126) U/L Troponin I 0.078 H* 0.073 H* (0.000-0.034) ng/mL Total Protein (6.3-8.2) g/dL Albumin (3.5-5.0) g/dL 04/18/23 04/19/23 04/19/23 Range/Units 15:10 06:00 06:00 WBC 2.0 L (3.8-10.6) k/uL RBC 2.36 L (4.30-5.90) m/uL Hgb 7.8 L (13.0-17.5) gm/dL Hct 23.4 L (39.0-53.0) % RDW 20.1 H (11.5-15.5) % Plt Count 110 L (150-450) k/uL Neutrophils # 1.2 L (1.3-7.7) k/uL Lymphocytes # 0.6 L (1.0-4.8) k/uL Sodium 133 L 132 L (137-145) mmol/L Carbon Dioxide 21 L 21 L (22-30) mmol/L BUN 23 H (9-20) mg/dL Glucose 107 H (74-99) mg/dL AST 92 H (17-59) U/L ALT 75 H 58 H (4-49) U/L Alkaline Phosphatase 305 H 271 H (38-126) U/L Troponin I (0.000-0.034) ng/mL Total Protein 5.7 L 5.2 L (6.3-8.2) g/dL Albumin 3.1 L 2.7 L (3.5-5.0) g/dL Assessment and Plan (1) Fever Current Visit: Yes Status: Acute Code(s): R50.9 - FEVER, UNSPECIFIED SNOMED Code(s): 720977323 Plan: 1patient presented to hospital with sepsis in this patient who did have fever tachycardia leukopenia patient was noticed to be tender on abdominal examination concerning for possible abdominal source in this patient who did have history of metastatic cholangiocarcinoma currently on chemotherapy and will need to cover for the enteric gram-negative to the likely pathogen patient urine was negative chest x-ray reported negative for pneumonia no evidence of any cellulitis or joint swelling. 2 CT abdominal pelvis with oral contrast only because of his mildly elevated creatinine, did shows pancreatic head tumor stent in the common bile duct extending into the left hepatic duct 3-we will continue patient on Zosyn concerning for possible cholangitis while waiting for the culture to finalize Dictation was produced using [employer] software. please excuse any grammatical, word or spelling errors. Time with Patient: Less than 30
--- NOTE | 2023-04-20 12:00 | P.PN ---
Subjective Progress Note Date: 04/20/23 Principal diagnosis: Reason for follow-up is fever possible cholangitis Patient is a 73-year-old male with a past medical history significant for hypertension hyperlipidemia metastatic cholangiocarcinoma on chemotherapy last chemo was on 04/14/2023 patient was brought into the hospital for evaluation of mental status changes, chest x-ray and CT of the chest was negative patient did have a CT abdominal pelvis did shows pancreatic head mass stent with the region of common bile duct extending into the intrahepatic ducts on the left side. On today's visit that is 04/18/2023, Patient is afebrile patient is currently on room air and denies having any shortness of breath, the patient denies any chest pain or cough, the patient apparently have an episode of vomiting this morning some nausea but no abdominal pain and no diarrhea Patient creatinine is 1.27 blood culture so far pending Objective - Vital Signs Vital signs: Vital Signs Temp 98.1 F 04/20/23 08:20 Pulse 84 04/20/23 08:20 Resp 18 04/20/23 08:20 BP 119/74 04/20/23 08:20 Pulse Ox 97 04/20/23 08:20 FiO2 Intake & Output 04/19/23 04/20/23 04/20/23 18:59 06:59 18:59 Weight 53.07 kg Other: # Voids 2 - Exam GENERAL DESCRIPTION: An elderly male lying in bed in no distress RESPIRATORY SYSTEM: Unlabored breathing , decreased breath sounds at bases HEART: S1 S2 regular rate and rhythm , ABDOMEN: Soft , no tenderness EXTREMITIES: No edema feet - Labs CBC & Chem 7: 04/19/23 06:00 04/20/23 07:54 Labs: Abnormal Lab Results - Last 24 Hours (Table) 04/20/23 Range/Units 07:54 Creatinine 1.27 H (0.66-1.25) mg/dL Microbiology - Last 24 Hours (Table) 04/17/23 21:15 Blood Culture - Preliminary Blood 04/17/23 21:00 Blood Culture - Preliminary Blood Assessment and Plan (1) Fever Current Visit: Yes Status: Acute Code(s): R50.9 - FEVER, UNSPECIFIED SNOMED Code(s): 774866093 Plan: 1patient presented to hospital with sepsis in this patient who did have fever tachycardia leukopenia patient was noticed to be tender on abdominal examination concerning for possible abdominal source in this patient who did have history of metastatic cholangiocarcinoma currently on chemotherapy and will need to cover for the enteric gram-negative to the likely pathogen patient urine was negative chest x-ray reported negative for pneumonia no evidence of any cellulitis or joint swelling. 2 CT abdominal pelvis with oral contrast only because of his mildly elevated creatinine, did shows pancreatic head tumor stent in the common bile duct extending into the left hepatic duct 3-the patient did have resolution of his fever, cultures currently pending patient to continue Zosyn concerning for possible cholangitis while waiting for the culture to finalize Dictation was produced using [employer] dictation software. please excuse any grammatical, word or spelling errors. Time with Patient: Less than 30
--- NOTE | 2023-04-20 12:01 | CA ---
Transthoracic Echo Report Name: Keenan Rock Age: 73 Gender: M : 1950 Exam Date: 04/18/2023 12:53 Exam Location: [facility] Ht (in): 67 Wt (lb): 117 Ordering Physician: Hermann Hassan MD Attending/Referring Phys: Sales Force Developer Mariah Wilson RDCS Procedure CPT: Indications: elevated trop Cardiac Hx: Technical Quality: Fair Contrast 1: Total Dose (mL): Contrast 2: Total Dose (mL): MEASUREMENTS (Male / Female) Normal Values 2D ECHO LV Diastolic Diameter PLAX 4.0 cm 4.2 - 5.9 / 3.9 - 5.3 cm LV Systolic Diameter PLAX 2.8 cm IVS Diastolic Thickness 1.3 cm 0.6 - 1.0 / 0.6 - 0.9 cm LVPW Diastolic Thickness 1.2 cm 0.6 - 1.0 / 0.6 - 0.9 cm LV Relative Wall Thickness 0.6 RV Internal Dim ED PLAX 3.6 cm LA Systolic Diameter LX 3.1 cm 3.0 - 4.0 / 2.7 - 3.8 cm M-MODE Aortic Root Diameter MM 3.4 cm AV Cusp Separation MM 2.2 cm DOPPLER AV Peak Velocity 107.7 cm/s AV Peak Gradient 4.6 mmHg MV Area PHT 4.0 cm??? Mitral E Point Velocity 48.5 cm/s Mitral A Point Velocity 30.4 cm/s Mitral E to A Ratio 1.6 MV Deceleration Time 187.8 ms FINDINGS Left Ventricle Left ventricular ejection fraction is estimated at 50-55 %. Mildly increased septal wall thickness. Left ventricular cavity size normal. Right Ventricle Mild right ventricular dilatation. Unable to estimate the right ventricular systolic pressure. Right Atrium Normal right atrial size. Left Atrium Normal left atrial size. Mitral Valve Structurally normal mitral valve. No mitral stenosis, regurgitation or prolapse. Aortic Valve Trileaflet aortic valve. No aortic valve stenosis or regurgitation. Tricuspid Valve Structurally normal tricuspid valve. No tricuspid stenosis, regurgitation or prolapse. Pulmonic Valve Structurally normal pulmonic valve. No pulmonic regurgitation. Pericardium No pericardial effusion. Aorta Normal size aortic root and proximal ascending aorta. CONCLUSIONS Technically suboptimal and off axis images Normal LV function Previewed by: Dr. Stephan Rosales MD (Electronically Signed) Final Date: 20 April 2023 12:01
--- NOTE | 2023-04-20 12:12 | P.PN ---
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 We have been asked to see the patient in consultation for elevated troponins. Patient examined at the bedside in the emergency room. Patient's family is at the bedside. Patient's family states that the patient was extremely cold yesterday and was shaking. They state that they tried to place blankets on him but he continued to feel cold. They ended up bringing him to the hospital where he was found to be febrile with a fever of 102.7. Patient also developed transient speech difficulty and right leg weakness and neurology was consulted for further evaluation. DIAGNOSTICS: - EKG reveals sinus tachycardia - Chest xray negative for acute process. - Laboratory data: WBC 2.0. Hemoglobin 7.8. Platelet count 110. Sodium 133. Potassium 3.8. BUN 23. Creatinine 1.14. Troponin 0.040. 0.078. 0.073. - Current home cardiac medications include Eliquis 5 mg twice a day, midodrine 5 mg twice a day. -No previous echocardiogram or cardiac catheterization available for review 04/20/2023 Patient examined this morning at the bedside. Patient currently denies chest pain or pressure. He denies shortness of breath. MRI of the brain revealed scattered acute/subacute CVA foci that are near the JV MCA watershed region and along the cortex. PHYSICAL EXAM: VITAL SIGNS: Reviewed. GENERAL: Well-developed in no acute distress. HEENT: Head is normocephalic. Pupils are equal, round. Sclerae anicteric. Mucous membranes of the mouth are moist. Neck supple. No JVD or thyromegaly LUNGS: Respirations even and unlabored. Lungs essentially clear to auscultation bilaterally. HEART: Regular rate and rhythm. S1 and S2 heard. ABDOMEN: Soft. Nondistended. Nontender. EXTREMITIES: Normal range of motion. No clubbing or cyanosis. Peripheral pulses intact. No lower extremity edema NEUROLOGIC: Awake and alert. Oriented x 3. ASSESSMENT: Altered mental status Febrile illness, 102.7 on admission Acute/subacute CVA per MRI with transient speech difficulty and right leg weakness History of CVA, 10/2022 Elevated of DVT, 10/2022 on Eliquis History of metastatic bile duct cancer; status post Whipple, undergoing chemotherapy Pancytopenia Elevated troponins, flat, not suggestive of acute coronary syndrome Elevated liver enzymes PLAN: Continue current cardiac medications Blood cultures are negative. Endocarditis unlikely. Neurology requesting JANENE. Will await transthoracic echo results and will make further recommendations. At this time, do not anticipate need to JANENE as patient as many other factors for CVA that are not cardiac in nature, including malignancy. Neurology and infectious disease are following Further recommendations pending patient course Nurse practitioner note has been reviewed by physician. Signing provider agrees with the documented findings, assessment, and plan of care documented by GOLD LEAF GILDER as a scribe. Objective - Vital Signs Vital signs: Vital Signs Temp 98.1 F 04/20/23 08:20 Pulse 84 04/20/23 08:20 Resp 18 04/20/23 08:20 BP 119/74 04/20/23 08:20 Pulse Ox 97 04/20/23 08:20 FiO2 Intake & Output 04/19/23 04/20/23 04/20/23 18:59 06:59 18:59 Weight 53.07 kg Other: # Voids 2 - Labs CBC & Chem 7: 04/19/23 06:00 04/20/23 07:54 Labs: Abnormal Lab Results - Last 24 Hours (Table) 04/20/23 Range/Units 07:54 Creatinine 1.27 H (0.66-1.25) mg/dL Microbiology - Last 24 Hours (Table) 04/17/23 21:15 Blood Culture - Preliminary Blood 04/17/23 21:00 Blood Culture - Preliminary Blood
--- NOTE | 2023-04-20 14:38 | P.CONS ---
History of Present Illness - Reason for Consult Consult date: 04/20/23 cholangiocarcinoma Requesting physician: Ck Bone - Chief Complaint AMS - History of Present Illness Patient is a 73-year-old male with a significant history of cholangiocarcinoma. He is a patient of Dr. Butt, currently receiving care and treatment at [facility] [place]. He had presented to his PCP in 04/08 with new onset of jaundice. The patient was admitted to the hospital locally, and had imaging performed, that did not show any definite mass but did show evidence of extrahepatic biliary obstruction. It was felt that he may have a gallstone causing obstruction, and was referred to [facility]. The patient underwent ERCP on 04/05/22. He was found to have a CBD stricture, with biopsy positive for adenocarcinoma. The patient then underwent staging CT scans that showed no evidence of metastatic disease. He was therefore taken to surgery and had diagnostic laparoscopy, Whipple's procedure, radical 5/hepatic duct resection, intrahepatic hepaticojejunostomy, and lymph node dissection from the retroperitoneum and periportal areas. The final pathology showed a 2.2 cm tumor, with extension outside the wall of the bile duct into the adjacent liver, due to which extended resection and hepaticojejunostomy was required. Margins were clean, although tumor was less than 1 mm from the nearest soft tissue margin. One out of 27 lymph nodes was involved. He was staged as p T3 N1, stage IIB. His follow-up CT scans from 07/05/22 showed no obvious residual disease. There were some indeterminate findings including low attenuation soft tissue medial to the deandra hepatis, and some nodular and linear soft tissue densities in the mid/lower anterior abnormal fat in the midline. He was started on adjuvant Xeloda in July 2022. Restaging CT scans in 11/06 appeared to show progression with development of some retroperitoneal adenopathy and possibly liver lesion. Therefore Xeloda was discontinued. The patient was then admitted to the hospital on 11/13/22 with progressive weakness, and dehydration. He was found to have a PE in the right lung, and was started on Eliquis. Repeat CT scans again showed findings consistent with progression in the upper abdomen. The prior CT scan from [facility] was also discussed with surgical oncology. It was felt that on review on comparison with previous studies, the findings on CT scans were definitive and confirmed recurrence. In addition his CA-19-9 had shown a significant increase in to the 400+ range. It was discussed that the patient would likely be at increased risk of adverse events with std [place] containing regimens, given progressive tolerance issues with single agent Xeloda, and prior fluctuations and drops in his renal function. The patient was referred to [facility] for evaluation for clinical trials in November 2022. He has [facility] folowing [facility], currently undergoing treatment with Cisplatin/gemzar/imfinzi. Per son, cisplatin was just recently stopped as he had a positive treatment response and was recommended to continue on Gemzar and imfinzi. He completed his last cycle on 04/14/23. Family states patient has been tolerating treatment well. Patient presented to the emergency room with altered mental status. Son states that patient was unable to move his right side for approximately 30 minutes prior to arrival. CT brain revealed no acute intracranial processes with similar left basal ganglia/bach radiata and left cerebellar injuries. MRI brain was obtained revealing scattered acute/subacute CVA foci near the JV MCA watershed region and along the cortex. Nonspecific white matter changes. And remote injury to the left cerebellum and left basal ganglia extending into the left bach radiata. At today's visit patient as regained strength on the right side. He did have a stroke approx 4 months ago and has experienced speech difficulties since. This remains unchanged. Patient has remained on Eliquis 5 mg twice daily, however approx 3 weeks ago patient had a fall at which time he was evaluated in the emergency room and was off of Eliquis for [address] chest abdomen and pelvis without contrast revealed suspicion of a pancreatic head mass limited without contrast. Mild tree in bud areas of nodularity within the right lung. Enlarged preaortic lymph node measuring 1.6 cm. Zosyn started. CBC reviewed, WBC 2.0, ANC 1200, hemoglobin 7.8, platelets 110,000. Bilirubin 0.6 with transaminitis noted. Serial trops elevated. Cardiology and neurology following. Review of Systems 10 point ROS is negative except as stated in the HPI Past Medical History Past Medical History: Cancer, Hyperlipidemia, Hypertension, Prostate Disorder Additional Past Medical History / Comment(s): "slightly high BP", gout, History of Any Multi-Drug Resistant Organisms: None Reported Past Surgical History: Appendectomy, Cholecystectomy, Orthopedic Surgery, Tonsillectomy Additional Past Surgical History / Comment(s): rach shoulder rotator cuff, Past Anesthesia/Blood Transfusion Reactions: No Reported Reaction Past Psychological History: No Psychological Hx Reported Smoking Status: Never smoker Past Alcohol Use History: None Reported Past Drug Use History: None Reported - Past Family History Father Family Medical History: Cancer Medications and Allergies Home Medications Medication Instructions Recorded Confirmed Type Tamsulosin [Flomax] 0.4 mg PO HS 05/26/16 04/18/23 History Acetaminophen/Codeine Liquid 5 ml PO Q6H PRN 04/18/23 04/18/23 History [Tylenol w/codeine Elixir] Apixaban [Eliquis] 5 mg PO BID 04/18/23 04/18/23 History HYDROcodone/APAP 7.5-325MG [[place] 1 tab PO TID PRN 04/18/23 04/18/23 History 7.5-325] Lipase/Protease/Amylase [Creon Dr 1 capsule PO QID 04/18/23 04/18/23 History 24,000 Unit Capsule] Metoclopramide HCl [Reglan] 10 mg PO TID 04/18/23 04/18/23 History Midodrine [ProAmatine] 5 mg PO BID@0830,1500 04/18/23 04/18/23 History Mirtazapine 15 mg PO HS 04/18/23 04/18/23 History Omeprazole [PriLOSEC] 20 mg PO DAILY 04/18/23 04/18/23 History Prochlorperazine [Compazine] 10 mg PO QID 04/18/23 04/18/23 History Sennosides [Senokot] 8.6 mg PO BID 04/18/23 04/18/23 History allopurinoL [Allopurinol] 100 mg PO HS 04/18/23 04/18/23 History Allergies Allergy/AdvReac Type Severity Reaction Status Date / Time No Known Allergies Allergy Verified 04/18/23 08:11 Physical Exam Vitals: Vital Signs Temp Pulse Pulse Pulse Resp BP BP 04/20/23 08:20 98.1 F 76 84 18 119/74 04/20/23 04:00 84 17 148/81 04/20/23 00:00 84 18 160/90 04/19/23 21:40 97.7 F 78 17 97/56 04/19/23 19:30 84 18 118/68 04/19/23 18:42 78 18 93/62 04/19/23 14:01 94 18 120/78 Pulse Ox 04/20/23 08:20 97 04/20/23 04:00 95 04/20/23 00:00 97 04/19/23 21:40 97 04/19/23 19:30 96 04/19/23 18:42 96 04/19/23 14:01 98 Intake and Output 04/19/23 04/20/23 04/20/23 22:59 06:59 14:59 Other: # Voids 2 Weight 53.07 kg - Constitutional General appearance: average body habitus, no acute distress - Respiratory Respiratory: bilateral: CTA - Cardiovascular Rhythm: regular Heart sounds: normal: S1, S2 - Gastrointestinal General gastrointestinal: soft, no tenderness - Integumentary Integumentary: no cyanotic - Neurologic mild weakness of RLE. Aphasia - Musculoskeletal mild weakness noted in RLE, 5/5 strength in RUE, LUE and LLE Results CBC & Chem 7: 04/19/23 06:00 04/20/23 07:54 Labs: Abnormal Lab Results - Last 24 Hours (Table) 04/20/23 Range/Units 07:54 Creatinine 1.27 H (0.66-1.25) mg/dL Microbiology - Last 24 Hours (Table) 04/17/23 21:15 Blood Culture - Preliminary Blood 04/17/23 21:00 Blood Culture - Preliminary Blood CT scan - abdomen: report reviewed CT scan - chest: report reviewed CT Scan - head: report reviewed MRI - head: report reviewed Assessment and Plan (1) Acute encephalopathy Current Visit: Yes Status: Acute Priority: High Code(s): G93.40 - ENCEPHALOPATHY, UNSPECIFIED SNOMED Code(s): 26918276 (2) Metastatic cholangiocarcinoma to bile duct Current Visit: Yes Status: Acute Priority: High Code(s): C78.89 - SEC ONDARY MALIGNANT NEOPLASM OF OTHER DIGESTIVE ORGANS; C22.1 - INTRAHEPATIC BILE DUCT CARCINOMA SNOMED Code(s): 0920916180 (3) Pancytopenia Current Visit: Yes Status: Acute Code(s): D61.818 - OTHER PANCYTOPENIA SNOMED Code(s): 260910405 Plan: AMS, acute encephalopathy: Presented with altered mental status. Son states that patient was unable to move his right side for approximately 30 minutes prior to arrival. He did have a stroke approx 4 months ago and has experienced speech difficulties since. This remains unchanged. Patient has remained on Eliquis 5 mg twice daily for PE history, however approx 3 weeks ago patient had a fall at which time he was evaluated in the emergency room and was off of Eliquis for 24 hours. -CT brain revealed no acute intracranial processes with similar left basal ganglia/bach radiata and left cerebellar injuries. MRI brain was obtained revealing scattered acute/subacute CVA foci near the JV MCA watershed region and along the cortex. Nonspecific white matter changes. And remote injury to the left cerebellum and left basal ganglia extending into the left bach radiata -EEG noted background slowing of [id number] degree suggestive of generalized cerebral dysfunction. No epileptiform activity seen -Neurology following Chemo induced pancytopenia: -CBC revealed WBC 2.0, ANC 1200, hemoglobin 7.8, platelets 110,000. Son reports patient has been receiving intermittent supportive blood transfusions since starting new regimen -7 days s/p treatment and is currently in vishal -Continue to monitor CBC daily. Please transfuse for hgb <7 or for platelets less than 50,000 if remains on anticoagulation Cholangiocarcinoma: -Full history in HPI -Restaging CT scans in 11/06 appeared to show progression with development of some retroperitoneal adenopathy and possibly liver lesion. In addition his CA-19-9 had shown a significant increase in to the 400+ range. Therefore Xeloda was discontinued. The patient was referred to [facility] for evaluation for clinical trials in November 2022. He has been following [facility], currently undergoing treatment with Cisplatin/gemzar/imfinzi. Per son, cisplatin was just recently stopped as he had a noted positive treatment response and was recommended to continue on Gemzar and imfinzi. He completed his last cycle on 04/14/23. -CT chest abdomen and pelvis without contrast revealed suspicion of a pancreatic head mass limited without contrast. Mild tree in bud areas of nodularity within the right lung. Enlarged preaortic lymph node measuring 1.6 cm. -Family has already spoken with [facility] regarding admission, and will schedule f/u with them upon discharge attests: I have seen and examined patient, performed H&P, developed impression and plan of care. Discussed with dictator. Agree with documentation, dictated as a scribe
--- NOTE | 2023-04-20 19:02 | P.PN ---
Progress Note - Text Progress Note Date: 04/20/23 Hospital course: I am rounding for Dr. Hermann Hassan. April 19, 2023:: Admitted with p cytopenia, sepsis. Decreased appetite. Some loose bowel movements. Presented with transient right leg weakness and transient speech difficulty. 4 months ago patient had a stroke with some residual word finding difficulty. Patient admitted with also sepsis. On IV Zosyn. Blood cultures are pending. Daughter at the bedside. Patient tired. Send stool for C. difficile. IV fluids. April 19: Blood cultures are pending. Depending on that discharge antibiotics per ID. JANENE was suggested by urology. Per cardiology not at the present time. Seen by oncology. Has chemotherapy-induced pancytopenia. Patient has known cholangiocarcinoma of the CBD. There local extension into the liver. Had Whipple's procedure. Also had previous PE. After receiving treatment patient is found to have recurrence. With elevation of CA 19.He has been folowing at [facility], currently undergoing treatment with Cisplatin/gemzar/imfinzi. Per son, cisplatin was just recently stopped as he had a positive treatment response and was recommended to continue on Gemzar and imfinzi. He completed his last cycle on 04/14/23. Family states patient has been tolerating treatment well. Active Medications Acetaminophen (Acetaminophen Tab 325 Mg Tab) 650 mg PO Q6HR PRN PRN Reason: Pain Hydrocodone Bitart/Acetaminophen (Hydrocodone/Apap 7.5-325mg 1 Each Tab) 1 each PO TID PRN PRN Reason: Pain Last Admin: 04/20/23 08:43 Dose: 1 each Albuterol/Ipratropium (Ipratropium-Albuterol 3 Ml Neb) 3 ml INHALATION RT-QID PRN PRN Reason: Shortness Of Breath Or Wheezing Allopurinol (Allopurinol 100 Mg Tab) 100 mg PO DAILY [facility] Last Admin: 04/20/23 08:24 Dose: 100 mg Lipase/Protease/Amylase (Lipase 20,000/Protease 63,000/Amylase 84,000) 1 each PO QID [facility] Last Admin: 04/20/23 17:06 Dose: 1 each Apixaban (Apixaban 5 Mg Tab) 5 mg PO BID [facility]; Protocol Last Admin: 04/20/23 08:24 Dose: 5 mg Atorvastatin Calcium (Atorvastatin 20 Mg Tab) 20 mg PO [facility] Piperacillin Sod/Tazobactam (Sod 3.375 gm/ Sodium Chloride) 100 mls @ 25 mls/hr IVPB Q8HR [facility]; Protocol Last Admin: 04/20/23 17:05 Dose: 25 mls/hr Lactated Ringer's (Lactated Ringers) 1,000 mls @ 125 mls/hr IV .Q8H [facility] Last Admin: 04/20/23 01:12 Dose: 125 mls/hr Metoclopramide HCl (Metoclopramide 10 Mg Tab) 10 mg PO TID [facility] Last Admin: 04/20/23 17:05 Dose: 10 mg Midodrine (Midodrine 5 Mg Tab) 5 mg PO BID@0830,1500 [facility] Last Admin: 04/20/23 17:05 Dose: 5 mg Mirtazapine (Mirtazapine 15 Mg Tab) 15 mg PO [facility] Last Admin: 04/19/23 22:24 Dose: 15 mg Pantoprazole Sodium (Pantoprazole 40 Mg Tablet) 40 mg PO AC-BID [facility] Last Admin: 04/20/23 17:05 Dose: 40 mg Prochlorperazine Maleate (Prochlorperazine 10 Mg Tab) 10 mg PO Q6HR PRN PRN Reason: Nausea And Vomiting Senna (Sennosides 8.6 Mg Tab) 8.6 mg PO BID [facility] Last Admin: 04/20/23 08:24 Dose: 8.6 mg Tamsulosin HCl (Tamsulosin 0.4 Mg Cap.Er.24h) 0.4 mg PO [facility] Last Admin: 04/19/23 22:24 Dose: 0.4 mg On examination: VITAL SIGNS: 97.7, 72, 16, 157 x 98, 97% room air GENERAL APPEARANCE: Up in a chair HEENT: Normal external appearance of nose and ear. Oral cavity normal EYES: Pupils equal. Conjunctiva normal. NECK: JVD not raised. Mass not palpable. RESPIRATORY: Respiratory effort normal. Lungs clear to auscultation. CARDIOVASCULAR: First and second sounds normal. No edema. ABDOMEN: Soft. Liver and spleen not palpable. No tenderness. No mass palpable. PSYCHIATRY: Alert and oriented x3. Mood and affect normal. INVESTIGATIONS, reviewed in the clinical context: April 19: Creatinine 1.27 MRI brain without contrast [April 18]: Scattered acute/subacute CVA foci that are near the JV MCA watershed region along the cortex. Remote injury to the left cerebellum and left basal ganglia extending into the left bach radiata. EKG tracing personally reviewed by me-normal sinus rhythm EEG: Suggestive of cerebral dysfunction. No epileptiform activity. CT chest, abdomen pelvis: Suspicion of a pancreatic head mass which is limited without contrast. CT angio head and neck: No dissection. Right upper lobe nodules. Assessment plan: -Acute/subacute stroke with scattered area near the JV, MCA watershed region along the cortex. Suggestive of embolic phenomena. Had a stroke 4 months ago with residual of difficulty finding words. Eliquis Being followed by neurology -GERD Prilosec -BPH Flomax -Chronic gout Allopurinol -Positive troponin. No acute coronary syndrome. Seen by cardiology -Sepsis with pancytopenia presentation IV Zosyn. Being followed by ID. Vancomycin was discontinued. Workup in place -Metastatic bile duct cancer Chemotherapy. -Some anorexia secondary underlying malignancy and chemotherapy Encourage oral intake -Moderate protein calorie malnutrition from decreased oral intake from underlying malignancy Ensure -Acute diarrhea. Had recently chemotherapy No abdominal pain. Rule out C. difficile -Full code IV Zosyn. IV fluids. Pending blood culture results.
[2023-04-20] MEDS: ATORVASTATIN 20 MG TAB PO SCH (20:07)
[2023-04-21] MEDS: ASPIRIN 81 MG PO SCH (09:41)
--- NOTE | 2023-04-21 09:58 | P.PN ---
Subjective Progress Note Date: 04/20/23 Patient was seen for follow-up. Patient's son was present today. Patient is sitting on the side of the bed. No new focal symptoms. Patient's had mentioned that since he had a stroke 4 months ago, he has residual difficulty with speech, in which he has difficulty with recalling, and with communication. Sometimes he has trouble with manipulating the phone. 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 He underwent oral chemotherapy in summer 2022 but it was not working therefore he was switched to IV chemotherapy in fall 2022 which he is still receiving and the last 1 was on , 04/14/2023. Objective - Vital Signs Vital signs: Vital Signs Temp 98.2 F 04/20/23 20:00 Pulse 94 04/20/23 20:00 Resp 16 04/20/23 20:00 BP 161/98 04/20/23 20:00 Pulse Ox 98 04/20/23 20:00 FiO2 Intake & Output 04/20/23 04/20/23 04/21/23 06:59 18:59 06:59 Intake Total 2145 0 Balance 2145 0 Weight 53.07 kg Intake: Intake, IV Titration 1425 Amount Lactated Ringers 1,000 ml 1325 @ 125 mls/hr IV .Q8H [facility] Rx#:[id number] Piperacillin-Tazobactam 3 100 .375 gm In Sodium Chloride 0.9% 100 ml @ 25 mls/hr IVPB Q8HR [facility] Rx# :[id number] Oral 720 0 Other: # Voids 2 4 - Exam Patient is alert and awake. He denies headache. Patient knows it is April, but thinks the year is . He knows he is in [facility] on but he thinks he is in the state of [place]. Apparently he lived in [place] when he was really young. He can name and repeat very well. Rest of the examination is unchanged. - Labs CBC & Chem 7: 04/19/23 06:00 04/20/23 07:54 Labs: Abnormal Lab Results - Last 24 Hours (Table) 04/20/23 Range/Units 07:54 Creatinine 1.27 H (0.66-1.25) mg/dL Microbiology - Last 24 Hours (Table) 04/17/23 21:15 Blood Culture - Preliminary Blood 04/17/23 21:00 Blood Culture - Preliminary Blood Assessment and Plan Assessment: * Recurrent ischemic strokes involving bilateral hemispheric region. MRI of the brain revealed scattered acute/subacute CVA foci that are near the JV/MCA watershed region and along the cortex. Correlate for embolic phenomenon. Patient was already on Eliquis 5 mg twice daily therefore uncertain as to the cause of recurrent strokes. Need to rule out cardioembolic source. Need to rule out vegetations. * Patient's stroke symptoms manifested with transient speech difficulty and right leg weakness, that resolved in about 30 to 45 minutes. Patient also had amaurosis fugax left eye about couple days prior to arrival. 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 * Altered mental status, likely due to metabolic encephalopathy. * Pancytopenia, with severe leukopenia, likely from chemotherapy * Fever * Mild renal insufficiency * Hyponatremia * Elevated liver enzymes * Borderline evaded cardiac enzymes * Lactic acidosis, possible due to sepsis * History of metastatic cholangiocarcinoma, currently on chemotherapy. Plan: * MRI of the brain revealed scattered acute/subacute CVA foci that are near the JV MCA watershed region and along the cortex. Correlate for embolic phenomenon. Nonspecific white matter changes, likely secondary to small vessel ischemic disease. Remote injury to the left cerebellum and left basal ganglia, extending into the left bach radiator. I personally reviewed MRI agree with the findings. * 2D echo revealed technically suboptimal study. Normal left ventricular systolic function with EF 50 to 55%. Mildly increased septal wall thickness. Normal left atrial size. * Cardiology has seen the patient, and making decision if JANENE is necessary, based upon above 2D echo report. I discussed with Dr. Bone in detail. Patient is already on Eliquis and has multiple bilateral ischemic strokes. JANENE may be beneficial to rule out any unusual embolic source. * CTA of head and neck revealed no evidence of dissection of the cervical internal carotid arteries or vertebral arteries or any evidence of significant stenosis at the carotid bifurcations. No evidence of intracranial high-grade stenosis or intracranial aneurysm. Right upper lobe nodule which should be reassessed future resolution 1 to 2 months. This later to be addressed by IM. * EEG was abnormal due to background slowing of mild to moderate degree, suggestive of generalized cerebral dysfunction as can be seen with toxic metabolic encephalopathy or related to diffuse structural brain abnormality. Clinical correlation is recommended. No epileptiform activity was seen. * Patient is currently on Eliquis 5 mg twice daily, compliant with the medication. * Hemoglobin A1c 5.6, fasting lipid panel with cholesterol 167, LDL 92, HDL 54, triglycerides 99. Patient's LFTs are mildly elevated. We will start low-dose statins, Lipitor 20 mg daily to target LDL <70. * Infectious disease on board for sepsis, currently on Zosyn. Patient denies headache. No evidence of meningitis. * Evaluation of other medical conditions as mentioned above, as per IM and other specialties. * Discussed with patient's son in detail.
[2023-04-21 10:32] LABS: Anisocytosis Moderate; HCT 24.6 % (39.0-53.0); HGB 8.2 gm/dL (13.0-17.5); Hypochromasia Slight; MCH 33.4 pg (25.0-35.0); MCHC 33.3 g/dL (31.0-37.0); MCV 100.1 fL (80.0-100.0); Macrocytosis Moderate; Mean Platelet Volume 9.9; RBC 2.45 m/uL (4.30-5.90); RDW 20.2 % (11.5-15.5); WBC 4.7 k/uL (3.8-10.6)
[2023-04-21 11:31] LABS: Lymphocytes # (M) 1.41 k/uL (1.0-4.8); Metamyelocytes # (M) 0.05 k/uL (0); Metamyelocytes % 1 %; Monocytes # (M) 0.56 k/uL (0-1.0); Myelocytes # (M) 0.05 k/uL (0); Myelocytes % 1 %; Neutrophils # (M) 2.73 k/uL (1.3-7.7); Neutrophils % (M) 58 %; Nucleated Red Blood Cells 0 /100 WBC (0-0); Total Cells Counted 200
[2023-04-21 11:33] LABS: Platelet Count 65 k/uL (150-450); Poikilocytosis (M) Present
--- NOTE | 2023-04-21 11:56 | P.PN ---
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 We have been asked to see the patient in consultation for elevated troponins. Patient examined at the bedside in the emergency room. Patient's family is at the bedside. Patient's family states that the patient was extremely cold yesterday and was shaking. They state that they tried to place blankets on him but he continued to feel cold. They ended up bringing him to the hospital where he was found to be febrile with a fever of 102.7. Patient also developed transient speech difficulty and right leg weakness and neurology was consulted for further evaluation. DIAGNOSTICS: - EKG reveals sinus tachycardia - Chest xray negative for acute process. - Laboratory data: WBC 2.0. Hemoglobin 7.8. Platelet count 110. Sodium 133. Potassium 3.8. BUN 23. Creatinine 1.14. Troponin 0.040. 0.078. 0.073. - Current home cardiac medications include Eliquis 5 mg twice a day, midodrine 5 mg twice a day. -No previous echocardiogram or cardiac catheterization available for review 04/20/2023 Patient examined this morning at the bedside. Patient currently denies chest pain or pressure. He denies shortness of breath. MRI of the brain revealed scattered acute/subacute CVA foci that are near the JV MCA watershed region and along the cortex. 04/21/2023 Patient examined this morning at the bedside. Patient denies chest pain or pressure. He denies shortness of breath. Echocardiogram completed revealing ejection fraction 50 to 55% with no significant valvular abnormalities noted. Technically suboptimal study per dictation. Blood cultures are negative at 48 hour kianna. PHYSICAL EXAM: VITAL SIGNS: Reviewed. GENERAL: Well-developed in no acute distress. HEENT: Head is normocephalic. Pupils are equal, round. Sclerae anicteric. Mucous membranes of the mouth are moist. Neck supple. No JVD or thyromegaly LUNGS: Respirations even and unlabored. Lungs essentially clear to auscultation bilaterally. HEART: Regular rate and rhythm. S1 and S2 heard. ABDOMEN: Soft. Nondistended. Nontender. EXTREMITIES: Normal range of motion. No clubbing or cyanosis. Peripheral pulses intact. No lower extremity edema NEUROLOGIC: Awake and alert. Oriented x 3. ASSESSMENT: Altered mental status Febrile illness, 102.7 on admission Acute/subacute CVA per MRI with transient speech difficulty and right leg weakness History of CVA, 10/2022 Elevated of DVT, 10/2022 on Eliquis History of metastatic bile duct cancer; status post Whipple, undergoing chemotherapy Pancytopenia Elevated troponins, flat, not suggestive of acute coronary syndrome Elevated liver enzymes PLAN: Continue current cardiac medications Blood cultures are negative at 48 hour kianna. Endocarditis unlikely.. Add aspirin 81mg daily Patient started on Lipitor per neurology. Dr. Hankins does not feel the patient needs Lipitor as he believes CVA is secondary to hypercoagulable state secondary to malignancy and not atherosclerotic disease. In addition, patient had elevated liver enzymes although they are trending downward. We will defer Lipitor to neurology and internal medicine. Further recommendations pending patient course Nurse practitioner note has been reviewed by physician. Signing provider agrees with the documented findings, assessment, and plan of care documented by RIBBER as a scribe. Dr. Hankins's addendum Case discussed with Dr. Vega, he is concerned about recurrent CVA on anticoagulation with Eliquis. Surface echocardiogram was of poor quality with lack of visualization of valves. Will plan for a JANENE tomorrow as per neurology service request. Objective - Vital Signs Vital signs: Vital Signs Temp 98.0 F 04/21/23 11:28 Pulse 79 04/21/23 11:28 Resp 15 04/21/23 11:28 BP 129/78 04/21/23 11:28 Pulse Ox 97 04/21/23 11:28 FiO2 Intake & Output 04/20/23 04/21/23 04/21/23 18:59 06:59 18:59 Intake Total 2145 0 110 Balance 2145 0 110 Intake: Intake, IV Titration 1425 Amount Lactated Ringers 1,000 ml 1325 @ 125 mls/hr IV .Q8H [facility] Rx#:[id number] Piperacillin-Tazobactam 3 100 .375 gm In Sodium Chloride 0.9% 100 ml @ 25 mls/hr IVPB Q8HR [facility] Rx# :[id number] Oral 720 0 110 Other: Voiding Method Toilet Urinal # Voids 4 2 - Labs CBC & Chem 7: 04/21/23 09:31 04/20/23 07:54 Labs: Abnormal Lab Results - Last 24 Hours (Table) 04/21/23 Range/Units 09:31 RBC 2.45 L (4.30-5.90) m/uL Hgb 8.2 L (13.0-17.5) gm/dL Hct 24.6 L (39.0-53.0) % MCV 100.1 H (80.0-100.0) fL RDW 20.2 H (11.5-15.5) % Plt Count 65 L (150-450) k/uL Metamyelocytes # (Man) 0.05 H (0) k/uL Myelocytes # (Manual) 0.05 H (0) k/uL Microbiology - Last 24 Hours (Table) 04/17/23 21:15 Blood Culture - Preliminary Blood 04/17/23 21:00 Blood Culture - Preliminary Blood
--- NOTE | 2023-04-21 13:52 | P.PN ---
Subjective Progress Note Date: 04/21/23 Principal diagnosis: Reason for follow-up is fever possible cholangitis Patient is a 73-year-old male with a past medical history significant for hypertension hyperlipidemia metastatic cholangiocarcinoma on chemotherapy last chemo was on 04/14/2023 patient was brought into the hospital for evaluation of mental status changes, chest x-ray and CT of the chest was negative patient did have a CT abdominal pelvis did shows pancreatic head mass stent with the region of common bile duct extending into the intrahepatic ducts on the left side. On today's visit that is 04/21/2023, the patient continues to be afebrile, the patient is on room air and breathing comfortably, the Pt denies having any chest pain or cough, the patient denies having any abdominal pain no vomiting or any diarrhea has been reported by the nursing staff, feeling better no new symptoms. The patient had a white count of 4.7 no BMP was done today blood cultures so far negative Objective - Vital Signs Vital signs: Vital Signs Temp 97.4 F L 04/21/23 08:18 Pulse 98 04/21/23 08:18 Resp 15 04/21/23 08:18 BP 140/86 04/21/23 08:18 Pulse Ox 96 04/21/23 08:18 FiO2 Intake & Output 04/20/23 04/21/23 04/21/23 18:59 06:59 18:59 Intake Total 2145 0 110 Balance 2145 0 110 Intake: Intake, IV Titration 1425 Amount Lactated Ringers 1,000 ml 1325 @ 125 mls/hr IV .Q8H [facility] Rx#:[id number] Piperacillin-Tazobactam 3 100 .375 gm In Sodium Chloride 0.9% 100 ml @ 25 mls/hr IVPB Q8HR [facility] Rx# :[id number] Oral 720 0 110 Other: Voiding Method Toilet Urinal # Voids 4 2 - Exam GENERAL DESCRIPTION: An elderly male lying in bed in no distress RESPIRATORY SYSTEM: Unlabored breathing , decreased breath sounds at bases HEART: S1 S2 regular rate and rhythm , ABDOMEN: Soft , no tenderness EXTREMITIES: No edema feet - Labs CBC & Chem 7: 04/21/23 09:31 04/20/23 07:54 Labs: Microbiology - Last 24 Hours (Table) 04/17/23 21:15 Blood Culture - Preliminary Blood 04/17/23 21:00 Blood Culture - Preliminary Blood Assessment and Plan (1) Fever Current Visit: Yes Status: Acute Code(s): R50.9 - FEVER, UNSPECIFIED SNOMED Code(s): 588236659 Plan: 1patient presented to hospital with sepsis in this patient who did have fever tachycardia leukopenia patient was noticed to be tender on abdominal examination concerning for possible abdominal source in this patient who did have history of metastatic cholangiocarcinoma currently on chemotherapy and will need to cover for the enteric gram-negative to the likely pathogen patient urine was negative chest x-ray reported negative for pneumonia no evidence of any cellulitis or irvin int swelling. 2 CT abdominal pelvis with oral contrast only because of his mildly elevated creatinine, did shows pancreatic head tumor stent in the common bile duct extending into the left hepatic duct 3-the patient did have resolution of his fever, cultures are so far negative patient is on Zosyn we will consider Augmentin on discharge Son at the bedside questions were answered Dictation was produced using Pinguo dictation software. please excuse any grammatical, word or spelling errors. Time with Patient: Less than 30
--- NOTE | 2023-04-21 16:38 | P.PN ---
Progress Note - Text Progress Note Date: 04/21/23 Hospital course: I am rounding for Dr. Hermann Hassan. April 19, 2023:: Admitted with p cytopenia, sepsis. Decreased appetite. Some loose bowel movements. Presented with transient right leg weakness and transient speech difficulty. 4 months ago patient had a stroke with some residual word finding difficulty. Patient admitted with also sepsis. On IV Zosyn. Blood cultures are pending. Daughter at the bedside. Patient tired. Send stool for C. difficile. IV fluids. April 19: Blood cultures are pending. Depending on that discharge antibiotics per ID. JANENE was suggested by urology. Per cardiology not at the present time. Seen by oncology. Has chemotherapy-induced pancytopenia. Patient has known cholangiocarcinoma of the CBD. There local extension into the liver. Had Whipple's procedure. Also had previous PE. After receiving treatment patient is found to have recurrence. With elevation of CA 19.He has been folowing at [facility], currently undergoing treatment with Cisplatin/gemzar/imfinzi. Per son, cisplatin was just recently stopped as he had a positive treatment response and was recommended to continue on Gemzar and imfinzi. He completed his last cycle on 04/14/23. Family states patient has been tolerating treatment well. April 20: I discussed with Dr. Hankins from cardiology. He then discussed with Dr. Salcedo from neurology. Because of surface echocardiogram not having good views he is planning to proceed for JANENE tomorrow. Patient is tolerating his diet. Cultures are still pending, being negative for 72 hours. ID is considering Augmentin for discharge. As platelets have dropped further we will stop aspirin for now. Which was started by cardiology. Active Medications Acetaminophen (Acetaminophen Tab 325 Mg Tab) 650 mg PO Q6HR PRN PRN Reason: Pain Hydrocodone Bitart/Acetaminophen (Hydrocodone/Apap 7.5-325mg 1 Each Tab) 1 each PO TID PRN PRN Reason: Pain Last Admin: 04/21/23 14:48 Dose: 1 each Albuterol/Ipratropium (Ipratropium-Albuterol 3 Ml Neb) 3 ml INHALATION RT-QID PRN PRN Reason: Shortness Of Breath Or Wheezing Allopurinol (Allopurinol 100 Mg Tab) 100 mg PO DAILY [facility] Last Admin: 03/07/24 08:23 Dose: 100 mg Lipase/Protease/Amylase (Lipase 20,000/Protease 63,000/Amylase 84,000) 1 each PO QID [facility] Last Admin: 04/21/23 14:41 Dose: 1 each Apixaban (Apixaban 5 Mg Tab) 5 mg PO BID [facility]; Protocol Last Admin: 04/21/23 08:23 Dose: 5 mg Aspirin (Aspirin 81 Mg) 81 mg PO DAILY [facility] Last Admin: 04/21/23 09:41 Dose: 81 mg Atorvastatin Calcium (Atorvastatin 20 Mg Tab) 20 mg PO [facility] Last Admin: 04/20/23 20:07 Dose: 20 mg Piperacillin Sod/Tazobactam (Sod 3.375 gm/ Sodium Chloride) 100 mls @ 25 mls/hr IVPB Q8HR [facility]; Protocol Last Admin: 04/21/23 15:22 Dose: 25 mls/hr Lactated Ringer's (Lactated Ringers) 1,000 mls @ 125 mls/hr IV .Q8H [facility] Last Admin: 04/21/23 15:22 Dose: 125 mls/hr Metoclopramide HCl (Metoclopramide 10 Mg Tab) 10 mg PO TID [facility] Last Admin: 04/21/23 15:22 Dose: 10 mg Midodrine (Midodrine 5 Mg Tab) 5 mg PO BID@0830,1500 [facility] Last Admin: 04/21/23 15:22 Dose: 5 mg Mirtazapine (Mirtazapine 15 Mg Tab) 15 mg PO [facility] Last Admin: 04/20/23 20:07 Dose: 15 mg Pantoprazole Sodium (Pantoprazole 40 Mg Tablet) 40 mg PO AC-BID [facility] Last Admin: 04/21/23 06:45 Dose: 40 mg Prochlorperazine Maleate (Prochlorperazine 10 Mg Tab) 10 mg PO Q6HR PRN PRN Reason: Nausea And Vomiting Senna (Sennosides 8.6 Mg Tab) 8.6 mg PO BID [facility] Last Admin: 04/21/23 08:23 Dose: 8.6 mg Tamsulosin HCl (Tamsulosin 0.4 Mg Cap.Er.24h) 0.4 mg PO [facility] Last Admin: 04/20/23 20:06 Dose: 0.4 mg On examination: VITAL SIGNS: 97.4, 89, 17, 145 x 93, 98% room air GENERAL APPEARANCE: Resting in bed, comfortable HEENT: Normal external appearance of nose and ear. Oral cavity normal EYES: Pupils equal. Conjunctiva normal. NECK: JVD not raised. Mass not palpable. RESPIRATORY: Respiratory effort normal. Lungs clear to auscultation. CARDIOVASCULAR: First and second sounds normal. No edema. ABDOMEN: Soft. Liver and spleen not palpable. No tenderness. No mass palpable. PSYCHIATRY: Alert and oriented x3. Mood and affect normal. INVESTIGATIONS, reviewed in the clinical context: April 20: White count 4.7 hemoglobin 8.2 platelets 65 April 19: Creatinine 1.27 MRI brain without contrast [April 18]: Scattered acute/subacute CVA foci that are near the JV MCA watershed region along the cortex. Remote injury to the left cerebellum and left basal ganglia extending into the left bach radiata. EKG tracing personally reviewed by me-normal sinus rhythm EEG: Suggestive of cerebral dysfunction. No epileptiform activity. CT chest, abdomen pelvis: Suspicion of a pancreatic head mass which is limited without contrast. CT angio head and neck: No dissection. Right upper lobe nodules. Assessment plan: -Acute/subacute stroke with scattered area near the JV, MCA watershed region along the cortex. Suggestive of embolic phenomena. Had a stroke 4 months ago with residual of difficulty finding words. Eliquis Being followed by neurology JANENE for tomorrow -GERD Prilosec -BPH Flomax -Chronic gout Allopurinol -Positive troponin. No acute coronary syndrome. Seen by cardiology -Sepsis with pancytopenia presentation IV Zosyn. Being followed by ID. Vancomycin was discontinued. Blood cultures negative till now. -Thrombocytopenia significant Drug-induced from Zosyn possible. But has underlying malignancy 2. With marrow suppression admitted. Will stop aspirin for now. -Metastatic bile duct cancer Chemotherapy. -Some anorexia secondary underlying malignancy and chemotherapy Encourage oral intake -Moderate protein calorie malnutrition from decreased oral intake from underlying malignancy Ensure -Acute diarrhea. Had recently chemotherapy No abdominal pain. Rule out C. difficile -Full code IV Zosyn. IV fluids. JANENE tomorrow. Stop aspirin because platelets dropping further.
--- NOTE | 2023-04-21 17:18 | P.PN ---
Subjective Progress Note Date: 04/21/23 At todays visit pt resting comfortably in bed. No acute events. Denies pain. Pt is communicating better today. Denies pain and any new neuro deficits Objective - Vital Signs Vital signs: Vital Signs Temp 97.4 F L 04/21/23 08:18 Pulse 98 04/21/23 08:18 Resp 15 04/21/23 08:18 BP 140/86 04/21/23 08:18 Pulse Ox 96 04/21/23 08:18 FiO2 Intake & Output 04/20/23 04/21/23 04/21/23 18:59 06:59 18:59 Intake Total 2145 0 110 Balance 2145 0 110 Intake: Intake, IV Titration 1425 Amount Lactated Ringers 1,000 ml 1325 @ 125 mls/hr IV .Q8H [facility] Rx#:[id number] Piperacillin-Tazobactam 3 100 .375 gm In Sodium Chloride 0.9% 100 ml @ 25 mls/hr IVPB Q8HR [facility] Rx# :[id number] Oral 720 0 110 Other: Voiding Method Toilet Urinal # Voids 4 2 - Constitutional General appearance: Present: no acute distress - EENT Eyes: Present: anicteric sclerae ENT: Present: hearing grossly normal - Respiratory Details: breathing is even and unlabored - Cardiovascular Details: skin warm and dry - Gastrointestinal General gastrointestinal: Present: soft. Absent: tenderness - Integumentary Integumentary: Present: pale. Absent: cyanotic, jaundiced - Musculoskeletal Musculoskeletal Comment(s): 4/5 strength in RUE and RLE, 5/5 in LLE and LUE Musculoskeletal: Present: right sided weakness - Psychiatric Psychiatric: Present: A&O x's 3 - Labs CBC & Chem 7: 04/21/23 09:31 04/20/23 07:54 Labs: Abnormal Lab Results - Last 24 Hours (Table) 04/21/23 Range/Units 09:31 RBC 2.45 L (4.30-5.90) m/uL Hgb 8.2 L (13.0-17.5) gm/dL Hct 24.6 L (39.0-53.0) % MCV 100.1 H (80.0-100.0) fL RDW 20.2 H (11.5-15.5) % Microbiology - Last 24 Hours (Table) 04/17/23 21:15 Blood Culture - Preliminary Blood 04/17/23 21:00 Blood Culture - Preliminary Blood Assessment and Plan (1) Acute encephalopathy Current Visit: Yes Status: Acute Priority: High Code(s): G93.40 - ENCEPHALOPATHY, UNSPECIFIED SNOMED Code(s): 74903012 (2) Metastatic cholangiocarcinoma to bile duct Current Visit: Yes Status: Acute Priority: High Code(s): C78.89 - SEC ONDARY MALIGNANT NEOPLASM OF OTHER DIGESTIVE ORGANS; C22.1 - INTRAHEPATIC BILE DUCT CARCINOMA SNOMED Code(s): 8193598920 (3) Pancytopenia Current Visit: Yes Status: Acute Code(s): D61.818 - OTHER PANCYTOPENIA SNOMED Code(s): 726496458 Plan: AMS, acute encephalopathy: Presented with altered mental status. Son states that patient was unable to move his right side for approximately 30 minutes prior to arrival. He did have a stroke approx 4 months ago and has experienced speech difficulties since. This remains unchanged. Patient has remained on Eliquis 5 mg twice daily for PE history, however approx 3 weeks ago patient had a fall at which time he was evaluated in the emergency room and was off of Eliquis for 24 hours. -CT brain revealed no acute intracranial processes with similar left basal ganglia/bach radiata and left cerebellar injuries. MRI brain was obtained revealing scattered acute/subacute CVA foci near the JV MCA watershed region and along the cortex. Nonspecific white matter changes. And remote injury to the left cerebellum and left basal ganglia extending into the left bach radiata -EEG noted background slowing of cnph-xx-aupzetac degree suggestive of generalized cerebral dysfunction. No epileptiform activity seen -Echo revealed EF 55-60%, but reports limited study. Planning for JANENE -Improvement in right sided weakness noted. Continues on eliquis, ASA added -Neurology and cardiology following Chemo induced pancytopenia: -Upon admit CBC revealed WBC 2.0, ANC 1200, hemoglobin 7.8, platelets 110,000. Son reports patient has been receiving intermittent supportive blood tra nsfusions since starting new regimen -8 days s/p treatment and is currently in vishal -Today, Hgb stable at 8.2, WBC 4.7, ANC 2,700. Plts 65,000 -Continue to monitor CBC daily. Please transfuse for hgb <7 or for platelets less than 50,000 if remains on anticoagulation Cholangiocarcinoma: -Full history in HPI -Restaging CT scans in 11/06 appeared to show progression with development of some retroperitoneal adenopathy and possibly liver lesion. In addition his CA-19-9 had shown a significant increase in to the 400+ range. Therefore Xeloda was discontinued. The patient was referred to [facility] for evaluation for clinical trials in November 2022. He has been following at [facility], currently underg oing treatment with Cisplatin/gemzar/imfinzi. Per son, cisplatin was just recently stopped as he had a noted positive treatment response and was recommended to continue on Gemzar and imfinzi. He completed his last cycle on 04/14/23. -CT chest abdomen and pelvis without contrast revealed suspicion of a pancreatic head mass limited without contrast. Mild tree in bud areas of nodularity within the right lung. Enlarged preaortic lymph node measuring 1.6 cm. -Family has already spoken with [facility] regarding admission, and will schedule f/u with Dr. Oliver upon discharge
[2023-04-22 09:15] LABS: Anisocytosis Moderate; Basophils % (A) 0 %; Eosinophils % (A) 0 %; HCT 22.2 % (39.0-53.0); HGB 7.3 gm/dL (13.0-17.5); Lymphocytes # (A) 1.6 k/uL (1.0-4.8); Lymphocytes % (A) 27 %; MCH 32.8 pg (25.0-35.0); MCV 99.3 fL (80.0-100.0); Macrocytosis Moderate; Mean Platelet Volume 9.4; Monocytes # (A) 0.5 k/uL (0-1.0); Monocytes % (A) 8 %; Neutrophils # (A) 3.7 k/uL (1.3-7.7); Neutrophils % (A) 61 %; RBC 2.23 m/uL (4.30-5.90); RDW 20.5 % (11.5-15.5)
[2023-04-22 09:25] LABS: Platelet Count 50 k/uL (150-450)
--- NOTE | 2023-04-22 10:20 | P.PN ---
Subjective Progress Note Date: 04/22/23 Principal diagnosis: COPD not in exacerbation, continue bronchodilators hold on steroids Right-sided pneumonia aspiration versus healthcare associated likely aspiration patient is appropriately being treated with IV Zosyn would recommend to 7-10 day therapy Acute CVA with right-sided weakness more so on the leg compared to upper extremity, MRI suggestive of the acute to subacute stroke in JV and MCA watershed territory Biliary tract cancer on chemotherapy Cachexia and weight loss with component of protein calorie malnourishment 04/22/2023, patient sitting upright on the bed breathing comfortably, denies any chest pain, patient has been room air, afebrile saturation is 97% blood pressure labile last set was 170/96 prior to that was 140/83, intermittently tachycardic as well. MRI report reviewed acute subacute severe foci that any of the JV and MCA watershed area likely embolic phenomena with white matter changes remote left cerebellar and left basal ganglia infarct extending to the bach radiate chest CT abdomen and pelvis pancreatic head mass along with she and but appearance of right lung likely due to infectious process. Patient remains on pain medicine director acting oral anticoagulant IV Zosyn Patient is a 73-year-old male with the past medical history of metastatic biliary cancer history of CVA in the past presented emergency department with altered mental status, patient was at home was feeling not well started having confusion and also having a lot of chills patient was nonverbal and noncommunicative brought into emergency department for further evaluation. Patient has significant history of biliary cancer diagnosed early last year has been on chemotherapy from [facility], in emergency department and computed tomography scan of the head no acute changes identified, patient has been admitted into the hospital further workup evaluation includes white cell count is 2000 hemoglobin and hematocrit 7.8/23.4 platelets 110 sodium is 132% 2.5 BUN/creatinine 20/1.15 glucose is 93 troponin 0.03 alk phos is 305 to 271 AST and ALT were 92/75 subsequently 58/58. Blood cultures 2, computed tomography scan of the chest abdominal pelvis pancreatic mass noted right lung tree and bud appearance nodularity noted suggestive of inflammatory process, patient does have enlarged paratracheal lymph nodes. MRI positive for acute/subacute CVA foci along a CTA and MCA watershed area with his appearance of remote injury to the left cerebellum and left basal ganglia along with involvement of the left coronary radiator. Currently patient is on bronchodilators with albuterol and ipratropium, direct acting or alcohol intake organ L Franco, Zosyn along with midodrine Objective - Vital Signs Vital signs: Vital Signs Temp 97.5 F L 04/22/23 03:20 Pulse 100 04/22/23 03:20 Resp 16 04/22/23 03:20 BP 168/96 04/22/23 03:20 Pulse Ox 97 04/22/23 03:20 FiO2 Intake & Output 04/21/23 04/22/23 04/22/23 18:59 06:59 18:59 Intake Total 220 0 Balance 220 0 Weight 53.07 kg Intake: Oral 220 0 Other: Voiding Method Toilet Toilet Urinal Urinal # Voids 2 1 - Exam - Constitutional General appearance: cooperative, disheveled - EENT Eyes: EOMI, PERRLA ENT: normal oropharynx Ears: bilateral: normal - Neck Carotids: bilateral: upstroke normal Thyroid: bilateral: normal size - Respiratory Respiratory: bilateral: CTA - Cardiovascular Rhythm: regular Heart sounds: normal: S1, S2 - Gastrointestinal General gastrointestinal: normal bowel sounds - Neurologic Neurologic: CNII-XII intact, focal deficits - Musculoskeletal Musculoskeletal: gait normal, generalized weakness, right sided weakness - Labs CBC & Chem 7: 04/22/23 08:00 04/20/23 07:54 Labs: Abnormal Lab Results - Last 24 Hours (Table) 04/21/23 04/22/23 Range/Units 09:31 08:00 RBC 2.45 L 2.23 L (4.30-5.90) m/uL Hgb 8.2 L 7.3 L (13.0-17.5) gm/dL Hct 24.6 L 22.2 L (39.0-53.0) % MCV 100.1 H (80.0-100.0) fL RDW 20.2 H 20.5 H (11.5-15.5) % Plt Count 65 L 50 L (150-450) k/uL Metamyelocytes # (Man) 0.05 H (0) k/uL Myelocytes # (Manual) 0.05 H (0) k/uL Microbiology - Last 24 Hours (Table) 04/17/23 21:15 Blood Culture - Preliminary Blood 04/17/23 21:00 Blood Culture - Preliminary Blood Assessment and Plan Assessment: COPD not in exacerbation, continue bronchodilators hold on steroids Right-sided pneumonia aspiration versus healthcare associated likely aspiration patient is appropriately being treated with IV Zosyn would recommend to 7-10 day therapy Acute CVA with right-sided weakness more so on the leg compared to upper extremity, MRI suggestive of the acute to subacute stroke in JV and MCA watershed territory Biliary tract cancer on chemotherapy Cachexia and weight loss with component of protein calorie malnourishment Plan: Continue antibiotics IV Zosyn Continue bronchodilator with DuoNeb 4 times a day as needed PT OT evaluation Continue anticoagulation and DVT prophylaxis patient on and requests Increase nutritional support Time with Patient: Greater than 30
[2023-04-22] MEDS: IV FLUID CONTINUATION 1,000 ML IV ONE (10:41)
[2023-04-22] MEDS: MIDAZOLAM 2 MG/2 ML VIAL IVP ONE (10:45)
[2023-04-22] MEDS: fentaNYL (PF) 50 MCG/ML 2 ML AMP IVP ONE (10:45)
[2023-04-22] MEDS: BENZOCAINE SPRAY 1 CAN MUCOUS MEM ONE (10:45)
--- NOTE | 2023-04-22 11:38 | P.PN ---
Subjective Progress Note Date: 04/22/23 No acute events. Denies pain and any new neuro deficits. Reports improvement in right sided weakness. JANENE scheduled for today Objective - Vital Signs Vital signs: Vital Signs Temp 97.9 F 04/22/23 08:40 Pulse 89 04/22/23 08:40 Resp 18 04/22/23 08:40 BP 167/109 04/22/23 08:40 Pulse Ox 96 04/22/23 08:40 FiO2 Intake & Output 04/21/23 04/22/23 04/22/23 18:59 06:59 18:59 Intake Total 220 0 50 Balance 220 0 50 Weight 53.07 kg Intake: IV 50 Oral 220 0 Other: Voiding Method Toilet Toilet Toilet Urinal Urinal Urinal # Voids 2 1 - Constitutional General appearance: Present: no acute distress, thin - EENT Eyes: Present: EOMI ENT: Present: hearing grossly normal - Respiratory Details: Breathing even and unlabored - Cardiovascular Details: skin warm and dry - Integumentary Integumentary: Present: pale - Psychiatric Psychiatric: Present: A&O x's 3 - Labs CBC & Chem 7: 04/22/23 08:00 04/20/23 07:54 Labs: Abnormal Lab Results - Last 24 Hours (Table) 04/21/23 04/22/23 Range/Units 09:31 08:00 RBC 2.23 L (4.30-5.90) m/uL Hgb 7.3 L (13.0-17.5) gm/dL Hct 22.2 L (39.0-53.0) % RDW 20.5 H (11.5-15.5) % Plt Count 65 L 50 L (150-450) k/uL Metamyelocytes # (Man) 0.05 H (0) k/uL Myelocytes # (Manual) 0.05 H (0) k/uL Microbiology - Last 24 Hours (Table) 04/17/23 21:15 Blood Culture - Preliminary Blood 04/17/23 21:00 Blood Culture - Preliminary Blood Assessment and Plan (1) Acute encephalopathy Current Visit: Yes Status: Acute Priority: High Code(s): G93.40 - ENCEPHALOPATHY, UNSPECIFIED SNOMED Code(s): 54397910 (2) 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 Son states that patient was unable to move his right side for approximately 30 minutes prior to arrival. He did have a stroke approx 4 months ago and has experienced speech difficulties since. This remains unchanged. Patient has remained on Eliquis 5 mg twice daily for PE history, however approx 3 weeks ago patient had a fall at which time he was evaluated in the emergency room and was off of Eliquis for 24 hours. -CT brain revealed no acute intracranial processes with similar left basal ganglia/bach radiata and left cerebellar injuries. MRI brain was obtained revealing scattered acute/subacute CVA foci near the JV MCA watershed region and along the cortex. Nonspecific white matter changes. And remote injury to the left cerebellum and left basal ganglia extending into the left bach radiata -EEG noted background slowing of tvjq-gl-unhzkmyl degree suggestive of generalized cerebral dysfunction. No epileptiform activity seen -Echo revealed EF 55-60%, but reports limited study. Planning for JANENE today -Improvement in right sided weakness noted. Continues on eliquis, ASA stopped due to drop in plts -Neurology and cardiology following Chemo induced pancytopenia: -Upon admit CBC revealed WBC 2.0, ANC 1200, hemoglobin 7.8, platelets 110,000. Son reports patient has been receiving intermittent supportive blood transfusions since starting new regimen -9 days s/p treatment and is currently in vishal -Today, Hgb 7.3, WBC 6.0, ANC 3,700. Plts 50,000. Denies any episodes of acute bleeding. Continues on eliquis. 1 dose platelets ordered. Will schedule lab encounter for Tuesday for repeat CBC -Please transfuse for hgb <7 or for platelets less than 50,000 if remains on anticoagulation Cholangiocarcinoma: -Full history in HPI -Restaging CT scans in 11/06 appeared to show progression with development of some retroperitoneal adenopathy and possibly liver lesion. In addition his CA-19-9 had shown a significant increase in to the 400+ range. Therefore Xeloda was discontinued. The patient was referred to [facility] for evaluation for clinical trials in November 2022. He has been following at [facility], currently undergoing treatment with Cisplatin/gemzar/imfinzi. Per son, cisplatin was just recently stopped as he had a noted positive treatment response and was recommended to continue on Gemzar and imfinzi. He completed his last cycle on 04/14/23. -CT chest abdomen and pelvis without contrast revealed suspicion of a pancreatic head mass limited without contrast. Mild tree in bud areas of nodularity within the right lung. Enlarged preaortic lymph node measuring 1.6 cm. -Family has already spoken with [facility] regarding admission, and will schedule f/u with Dr. Oliver upon discharge
[2023-04-22] MEDS: fentaNYL (PF) 50 MCG/ML 2 ML AMP ONE (11:49)
--- NOTE | 2023-04-22 11:59 | P.PN ---
Subjective Progress Note Date: 04/21/23 Patient was seen for follow-up. Patient's son was present today. He is doing better. Continues to be confused as per examination below. Patient's son mentions that patient is most part confused at baseline. Although he believes that he is back to himself. He has been confused since he had a stroke in October 2022. Patient's had mentioned previously that since he had a stroke 4 months ago, he has residual difficulty with speech, in which he has difficulty with recalling, and with communication. Sometimes he has trouble with manipulating the phone. 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 He underwent oral chemotherapy in summer 2022 but it was not working therefore he was switched to IV chemotherapy in fall 2022 which he is still receiving and the last 1 was on , 04/14/2023. Objective - Vital Signs Vital signs: Vital Signs Temp 97.4 F L 04/21/23 15:21 Pulse 89 04/21/23 15:21 Resp 17 04/21/23 15:21 BP 145/93 04/21/23 15:21 Pulse Ox 98 04/21/23 15:21 FiO2 Intake & Output 04/20/23 04/21/23 04/21/23 18:59 06:59 18:59 Intake Total 2145 0 220 Balance 2145 0 220 Weight 53.07 kg Intake: Intake, IV Titration 1425 Amount Lactated Ringers 1,000 ml 1325 @ 125 mls/hr IV .Q8H [facility] Rx#:[id number] Piperacillin-Tazobactam 3 100 .375 gm In Sodium Chloride 0.9% 100 ml @ 25 mls/hr IVPB Q8HR [facility] Rx# :[id number] Oral 720 0 220 Other: Voiding Method Toilet Urinal # Voids 4 2 - Exam Patient is alert and awake. He denies headache. Patient states is the month of May and the date is and the year is 1919 then send 1920. He knows he has 2 children, and name of the current president Mr. Solis. Patient states that he i s in [place] in [facility] (which is in [place] where he used to live) and he believes he is in the state of [place] (where he has lived before as well). He can name and repeat very well. Cranial nerves revealed visual garcia are full. Face is symmetric. Tongue protrudes midline. Pupils are equal, round and reacting. On muscle strength testing there is no pronator drift. No ataxia for nuauka-jj-emrj testing. - Labs CBC & Chem 7: 04/22/23 08:00 04/20/23 07:54 Labs: Abnormal Lab Results - Last 24 Hours (Table) 04/21/23 Range/Units 09:31 RBC 2.45 L (4.30-5.90) m/uL Hgb 8.2 L (13.0-17.5) gm/dL Hct 24.6 L (39.0-53.0) % MCV 100.1 H (80.0-100.0) fL RDW 20.2 H (11.5-15.5) % Plt Count 65 L (150-450) k/uL Metamyelocytes # (Man) 0.05 H (0) k/uL Myelocytes # (Manual) 0.05 H (0) k/uL Microbiology - Last 24 Hours (Table) 04/17/23 21:15 Blood Culture - Preliminary Blood 04/17/23 21:00 Blood Culture - Preliminary Blood Assessment and Plan Assessment: * Recurrent ischemic strokes involving bilateral hemispheric region. MRI of the brain revealed scattered acute/subacute CVA foci that are near the JV/MCA watershed region and along the cortex. Correlate for embolic phenomenon. Patient was already on Eliquis 5 mg twice daily therefore uncertain as to the cause of recurrent strokes. Need to rule out cardioembolic source. Need to rule out vegetations. * Patient's stroke symptoms manifested with transient speech difficulty and right leg weakness, that resolved in about 30 to 45 minutes. Patient also had amaurosis fugax left eye about couple days prior to arrival. 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 * Altered mental status, likely due to metabolic encephalopathy. * Hypercoagulable state due to metastatic cancer. * Pancytopenia, with severe leukopenia, likely from chemotherapy * Fever * Mild renal insufficiency * Hyponatremia * Elevated liver enzymes * Borderline evaded cardiac enzymes * Lactic acidosis, possible due to sepsis * History of metastatic cholangiocarcinoma, currently on chemotherapy. Plan: * MRI of the brain revealed scattered acute/subacute CVA foci that are near the JV MCA watershed region and along the cortex. Correlate for embolic phenomenon. Nonspecific white matter changes, likely secondary to small vessel ischemic disease. Remote injury to the left cerebellum and left basal ganglia, extending into the left bach radiator. I personally reviewed MRI agree with the findings. * 2D echo revealed technically suboptimal study. Normal left ventricular systol ic function with EF 50 to 55%. Mildly increased septal wall thickness. Normal left atrial size. * Cardiology has seen the patient, and declined JANENE because patient has multiple other comorbid factors. After cardiology discussed with primary physician, agreed to perform JANENE in the morning. I discussed with Dr. Bone yesterday in detail. Patient is already on Eliquis and has multiple bilateral ischemic strokes. JANENE may be beneficial to rule out any unusual embolic source. * CTA of head and neck revealed no evidence of dissection of the cervical internal carotid arteries or vertebral arteries or any evidence of significant stenosis at the carotid bifurcations. No evidence of intracranial high-grade stenosis or intracranial aneurysm. Right upper lobe nodule which should be reassessed future resolution 1 to 2 months. This later to be addressed by IM. * EEG was abnormal due to background slowing of mild to moderate degree, suggestive of generalized cerebral dysfunction as can be seen with toxic metabolic encephalopathy or related to diffuse structural brain abnormality. Clinical correlation is recommended. No epileptiform activity was seen. * Patient is currently on Eliquis 5 mg twice daily, compliant with the medication. * Hemoglobin A1c 5.6, fasting lipid panel with cholesterol 167, LDL 92, HDL 54, triglycerides 99. Patient's LFTs are mildly elevated. We will start low-dose statins, Lipitor 20 mg daily to target LDL <70. * Infectious disease on board for sepsis, currently on Zosyn. Patient denies headache. No evidence of meningitis. * Telemetry monitoring revealed sinus rhythm, sinus tachycardia in 130, PVCs and PACs. * Evaluation of other medical conditions as mentioned above, as per IM and other specialties. * Discussed with patient's son in detail.
[2023-04-22 12:56] VITALS: RESP 16
--- NOTE | 2023-04-22 16:26 | P.PN ---
Subjective Progress Note Date: 04/22/23 Principal diagnosis: Reason for follow-up is fever possible cholangitis Patient is a 73-year-old male with a past medical history significant for hypertension hyperlipidemia metastatic cholangiocarcinoma on chemotherapy last chemo was on 04/14/2023 patient was brought into the hospital for evaluation of mental status changes, chest x-ray and CT of the chest was negative patient did have a CT abdominal pelvis did shows pancreatic head mass stent with the region of common bile duct extending into the intrahepatic ducts on the left side. On today's evaluation that is 04/22/2023, Patient is afebrile patient is currently on room air and denies having any shortness of breath, the patient denies any chest pain or cough, the patient denies any nausea vomiting did not have any abdominal pain and no diarrhea, feeling better Patient did have white count of 6.0 blood culture has been negative Objective - Vital Signs Vital signs: Vital Signs Temp 98 F 04/22/23 11:35 Pulse 81 04/22/23 11:50 Resp 16 04/22/23 11:50 BP 161/99 04/22/23 11:50 Pulse Ox 97 04/22/23 11:50 FiO2 Intake & Output 04/21/23 04/22/23 04/22/23 18:59 06:59 18:59 Intake Total 220 0 50 Balance 220 0 50 Weight 53.07 kg Intake: IV 50 Oral 220 0 Other: Voiding Method Toilet Toilet Toilet Urinal Urinal Urinal # Voids 2 1 - Exam GENERAL DESCRIPTION: An elderly male lying in bed in no distress RESPIRATORY SYSTEM: Unlabored breathing , decreased breath sounds at bases HEART: S1 S2 regular rate and rhythm , ABDOMEN: Soft , no tenderness EXTREMITIES: No edema feet - Labs CBC & Chem 7: 04/22/23 08:00 04/20/23 07:54 Labs: Abnormal Lab Results - Last 24 Hours (Table) 04/22/23 Range/Units 08:00 RBC 2.23 L (4.30-5.90) m/uL Hgb 7.3 L (13.0-17.5) gm/dL Hct 22.2 L (39.0-53.0) % RDW 20.5 H (11.5-15.5) % Plt Count 50 L (150-450) k/uL Microbiology - Last 24 Hours (Table) 04/17/23 21:15 Blood Culture - Preliminary Blood 04/17/23 21:00 Blood Culture - Preliminary Blood Assessment and Plan (1) Fever Current Visit: Yes Status: Acute Code(s): R50.9 - FEVER, UNSPECIFIED SNOMED Code(s): 367863795 Plan: 1patient presented to hospital with sepsis in this patient who did have fever tachycardia leukopenia patient was noticed to be tender on abdominal examination concerning for possible abdominal source in this patient who did have history of metastatic cholangiocarcinoma currently on chemotherapy and will need to cover for the enteric gram-negative to the likely pathogen patient urine was negative chest x-ray reported negative for pneumonia no evidence of any cellulitis or joint swelling. 2 CT abdominal pelvis with oral contrast only because of his mildly elevated creatinine, did shows pancreatic head tumor stent in the common bile duct extending into the left hepatic duct 3-the patient did have resolution of his fever, cultures are so far negative patient to continue with the Zosyn while inpatient and will be able to finish therapy with oral Augmentin prescription sent to the pharmacy Son at the bedside questions were answered if he did have any further episodes of fever or sepsis related to the cholangitis will benefit for removal of the CBD stent Dictation was produced using [employer] dictation software. please excuse any grammatical, word or spelling errors. Time with Patient: Less than 30
--- NOTE | 2023-04-22 16:50 | P.TEE ---
Date of Procedure: 04/22/23 Description of Procedure(s): Procedure performed: 1. Transesophageal Echocardiogram with color flow doppler, pulsed wave doppler and continuous wave doppler 2. Moderate conscious sedation. Sedation time 15 mins. 3. Bubble Study Indications: Embolic CVA Consent: I have discussed the risks, benefits and alternative therapies for the above-mentioned procedure. The patient has indicated understanding and acceptance of the risks of the procedure. Signed consent was obtained and was placed in the paper chart. Procedural Steps: Timeout was performed in usual fashion. Patient's heart rate, blood pressure, oxygen saturation and ECG were monitored. Benzocaine was sprayed liberally in the back of the throat. Bite block was placed between the jaw. 2 mg of Versed and 50 mcg of Fentanyl were administered intravenously. After achieving appropriate moderate conscious sedation, JANENE probe was advanced witho ut difficulty and without any immediate complications to the esophagus. JANENE study was performed with color flow doppler, pulsed wave doppler and continuous wave doppler. The probe was then removed. Patient tolerated the procedure well. Patient was transferred to the post procedure area in stable and satisfactory condition. Throughout the procedure patient's heart rate, blood pressure, oxygen saturation and ECG were monitored. Total sedation time 15 mins. Complications: none FINDINGS Left Atrium: Moderate LA dilatation. No evidence of mass or thrombus seen Left Atrial Appendage: No evidence of thrombus or mass seen in MONTSE Inter atrial septum: Evidence of small PFO with right to left shunt on bubble study. Left Ventricle: Overall normal global LV size and systolic function Right Atrium: Normal overall RA size Right Ventricle: Normal global RV size and systolic function Aortic Valve: Structurally normal Trileaflet, mild calcific degeneration of the leaflets. No significant regurgitation or stenosis on color Doppler. No evidence of vegetation Mitral Valve: Mild calcific degeneration of anterior mitral leaflet. Posteriorly directed moderate mitral regurgitation. No evidence of vegetation Pulmonic Valve: Significant stenosis or regurgitation Tricuspid Valve: Mild TR. No evidence of vegetation Ascending aorta, Aortic root and Aortic arch: Normal size aortic root and ascending aorta. Mild intimal thickening. Ascending aorta measured at 3.6 cm Descending aorta: Mild intimal thickening. Calcific plaque noticed with largest measuring 5 mm CONCLUSION: Evidence of small PFO with right to left shunting on bubble study Moderate left atrial dilatation Moderate eccentric mitral regurgitation Calcific plaque noticed in descending aorta Dyllan Hankins MD, RPVI, FACC Thank you for allowing [facility] to participate in this patient's care. Feel free to reach out in case of any followup questions.
[2023-04-22 18:43] VITALS: TEMP 97.3
[2023-04-22 19:13] VITALS: BP 140/89; PULSE 87
--- NOTE | 2023-04-23 14:35 | P.DS ---
Providers Date of admission: 04/18/23 01:23 Expected date of discharge: 04/22/23 Attending physician: Hermann Hassan Consults: 04/18/23 01:26 Consult Physician Urgent Consulting Provider: Butch Arellano Consult Reason/Comments: acute transient encepalopathy, possible tia vs seizure, fever Do you want consulting provider notified?: Already Contacted 04/18/23 01:27 Consult Physician Urgent Consulting Provider: Henrry Galeana Consult Reason/Comments: neutropenic fever Do you want consulting provider notified?: Yes 04/18/23 12:41 Consult Physician Routine Consulting Provider: Henrry Galeana Consult Reason/Comments: sepsis Do you want consulting provider notified?: Yes 04/18/23 12:54 Consult Physician Routine Consulting Provider: [facility] Consult Reason/Comments: elevated trop Do you want consulting provider notified?: Yes 04/18/23 17:44 Consult Physician Routine Consulting Provider: Pee Parkinson Consult Reason/Comments: cap/hap Do you want consulting provider notified?: Yes 04/19/23 15:25 Consult Physician Routine Consulting Provider: Antwan Butt Consult Reason/Comments: Metastatic bile duct cancer Do you want consulting provider notified?: Yes Primary care physician: Hermann Hassan [place] Hospital Course: Hospital course: I am rounding for Dr. Hermann Hassan. April 19, 2023:: Admitted with p cytopenia, sepsis. Decreased appetite. Some loose bowel movements. Presented with transient right leg weakness and transient speech difficulty. 4 months ago patient had a stroke with some residual word finding difficulty. Patient admitted with also sepsis. On IV Zosyn. Blood cultures are pending. Daughter at the bedside. Patient tired. Send stool for C. difficile. IV fluids. April 19: Blood cultures are pending. Depending on that discharge antibiotics per ID. JANENE was suggested by urology. Per cardiology not at the present time. Seen by oncology. Has chemotherapy-induced pancytopenia. Patient has known cholangiocarcinoma of the CBD. There local extension into the liver. Had Whipple's procedure. Also had previous PE. After receiving treatment patient is found to have recurrence. With elevation of CA 19.He has been folowing at [facility], currently undergoing treatment with Cisplatin/gemzar/imfinzi. Per son, cisplatin was just recently stopped as he had a positive treatment response and was recommended to continue on Gemzar and imfinzi. He completed his last cycle on 04/14/23. Family states patient has been tolerating treatment well. April 20: I discussed with Dr. Hankins from cardiology. He then discussed with Dr. Salcedo from neurology. Because of surface echocardiogram not having good views he is planning to proceed for JANENE tomorrow. Patient is tolerating his diet. Cultures are still pending, being negative for 72 hours. ID is considering Augmentin for discharge. As platelets have dropped further we will stop aspirin for now. Which was started by cardiology. April 21: Discussed with the patient and son at the bedside. Patient was transfused 4 units of platelets. Discussed with ID. Patient completed course of Augmentin for 10 days. Discussed with neurology Dr. Vega. Edilia for discharge. JANENE done by Dr. Ferrer showed a small PFO with a small right to left shunt. Oncology is putting the patient on Pradaxa for anticoagulation as it think Eliquis probably treatment failure. Patient to follow-up with oncology. Discussion and discharge planning more than 35 minutes On examination: VITAL SIGNS: 97.3, 85, 16, 120 x 80, 99% room air GENERAL APPEARANCE: Resting in bed, tired HEENT: Normal external appearance of nose and ear. Oral cavity normal EYES: Pupils equal. Conjunctiva normal. NECK: JVD not raised. Mass not palpable. RESPIRATORY: Respiratory effort normal. Lungs clear to auscultation. CARDIOVASCULAR: First and second sounds normal. No edema. ABDOMEN: Soft. Liver and spleen not palpable. No tenderness. No mass palpable. PSYCHIATRY: Alert and oriented x3. Mood and affect normal. INVESTIGATIONS, reviewed in the clinical context: April 21: White count 6 hemoglobin 7.3 platelets 50 April 20: White count 4.7 hemoglobin 8.2 platelets 65 April 19: Creatinine 1.27 MRI brain without contrast [April 18]: Scattered acute/subacute CVA foci that are near the JV MCA watershed region along the cortex. Remote injury to the left cerebellum and left basal ganglia extending into the left bach radiata. EKG tracing personally reviewed by me-normal sinus rhythm EEG: Suggestive of cerebral dysfunction. No epileptiform activity. CT chest, abdomen pelvis: Suspicion of a pancreatic head mass which is limited without contrast. CT angio head and neck: No dissection. Right upper lobe nodules. Assessment plan: -Acute/subacute stroke with scattered area near the JV, MCA watershed region along the cortex. Suggestive of embolic phenomena. Had a stroke 4 months ago with residual of difficulty finding words. Pradaxa per oncology arranging for the same because of possible treatment failure with Rosio Being followed by neurology JANENE-small PFO -GERD Prilosec -BPH Flomax -Chronic gout Allopurinol -Positive troponin. No acute coronary syndrome. Seen by cardiology -Sepsis with pancytopenia presentation IV Zosyn. Being followed by ID. Vancomycin was discontinued. Blood cultures negative till now. Augmentin 1 tablet twice daily for 10 days -Thrombocytopenia significant Drug-induced from Zosyn possible. But has underlying malignancy 2. With marrow suppression admitted. Aspirin stopped -Metastatic bile duct cancer Chemotherapy. -Some anorexia secondary underlying malignancy and chemotherapy Encourage oral intake -Moderate protein calorie malnutrition from decreased oral intake from underlying malignancy Ensure -Acute diarrhea. Had recently chemotherapy No abdominal pain. Rule out C. difficile -Full code Disposition: Home Patient Condition at Discharge: Serious Plan - Discharge Summary Discharge Rx Participant: No New Discharge Prescriptions: New Amoxic-Pot Clav 875-125Mg [Augmentin 875-125] 1 tab PO BID 10 Days #20 tab Atorvastatin [Lipitor] 20 mg PO HS #30 tab Dabigatran [Pradaxa] 150 mg PO BID #60 capsule Continue Tamsulosin [Flomax] 0.4 mg PO HS Lipase/Protease/Amylase [Creon Dr 24,000 Unit Capsule] 1 capsule PO QID Acetaminophen/Codeine Liquid [Tylenol w/codeine Elixir] 5 ml PO Q6H PRN PRN Reason: Pain Omeprazole [PriLOSEC] 20 mg PO DAILY Mirtazapine 15 mg PO HS Metoclopramide HCl [Reglan] 10 mg PO TID Apixaban [Eliquis] 5 mg PO BID allopurinoL 100 mg PO HS Sennosides [Senokot] 8.6 mg PO BID Midodrine [ProAmatine] 5 mg PO BID@0830,1500 HYDROcodone/APAP 7.5-325MG [Independence 7.5-325] 1 tab PO TID PRN PRN Reason: Pain Changed Prochlorperazine [Compazine] 10 mg PO QID PRN #0 PRN Reason: Nausea Discharge Medication List Tamsulosin [Flomax] 0.4 mg PO HS 05/26/16 [History] Acetaminophen/Codeine Liquid [Tylenol w/codeine Elixir] 5 ml PO Q6H PRN 04/18/23 [History] Apixaban [Eliquis] 5 mg PO BID 04/18/23 [History] HYDROcodone/APAP 7.5-325MG [Independence 7.5-325] 1 tab PO TID PRN 04/18/23 [History] Lipase/Protease/Amylase [Preethi Torrez 24,000 Unit Capsule] 1 capsule PO QID 04/18/23 [History] Metoclopramide HCl [Reglan] 10 mg PO TID 04/18/23 [History] Midodrine [ProAmatine] 5 mg PO BID@0830,1500 04/18/23 [History] Mirtazapine 15 mg PO HS 04/18/23 [History] Omeprazole [PriLOSEC] 20 mg PO DAILY 04/18/23 [History] Sennosides [Senokot] 8.6 mg PO BID 04/18/23 [History] allopurinoL 100 mg PO HS 04/18/23 [History] Amoxic-Pot Clav 875-125Mg [Augmentin 875-125] 1 tab PO BID 10 Days #20 tab 04/22/23 [Rx] Atorvastatin [Lipitor] 20 mg PO HS #30 tab 04/22/23 [Rx] Dabigatran [Pradaxa] 150 mg PO BID #60 capsule 04/22/23 [Rx] Prochlorperazine [Compazine] 10 mg PO QID PRN #0 04/22/23 [Rx] Follow up Appointment(s)/Referral(s): oncology, [Other] - 1 Week [facility], [NON-STAFF] - 1 Week Hermann Hassan MD [Primary Care Provider] - 1-2 days (Patient to schedule appointment, as office is closed at time of discharge. Please ensure office is aware this is an appointment following a hospital stay.) Patient Instructions/Handouts: Encephalopathy (DC) Discharge Disposition: HOME SELF-CARE
== END 2023-04-22 19:00 | disposition home or self-care (01) | DRG 871 ==
LOC: EC 20:44 → 3NCARDOBS 04-18 01:23 → 1SOBS 04-18 10:49 → 3SCARD 04-18 15:57
PROVIDERS: ADMIT Family Medicine; ATTEND Family Medicine
DX: A41.9 Sepsis, unspecified organism (principal); D61.810 Antineoplastic chemotherapy induced pancytopenia; G93.41 Metabolic encephalopathy; I63.522 Cerebral infarction due to unspecified occlusion or stenosis of left anterior cerebral artery; I63.512 Cerebral infarction due to unspecified occlusion or stenosis of left middle cerebral artery; J18.9 Pneumonia, unspecified organism; K83.1 Obstruction of bile duct; J69.0 Pneumonitis due to inhalation of food and vomit; D68.69 Other thrombophilia; E87.1 Hypo-osmolality and hyponatremia; E46 Unspecified protein-calorie malnutrition; R64 Cachexia; C22.1 Intrahepatic bile duct carcinoma; C77.2 Secondary and unspecified malignant neoplasm of intra-abdominal lymph nodes; G81.91 Hemiplegia, unspecified affecting right dominant side; I47.10 Supraventricular tachycardia, unspecified; R65.20 Severe sepsis without septic shock; E11.22 Type 2 diabetes mellitus with diabetic chronic kidney disease; E78.5 Hyperlipidemia, unspecified; J44.9 Chronic obstructive pulmonary disease, unspecified; R47.89 Other speech disturbances; I12.9 Hypertensive chronic kidney disease with stage 1 through stage 4 chronic kidney disease, or unspecified chronic kidney disease; N18.9 Chronic kidney disease, unspecified; T45.1X5A Adverse effect of antineoplastic and immunosuppressive drugs, initial encounter; Z79.01 Long term (current) use of anticoagulants; Z79.82 Long term (current) use of aspirin; Z79.899 Other long term (current) drug therapy
CPT/HCPCS: 36415; 70450; 70496; 70498; 70551; 71046; 71250; 74176; 80053; 80061; 81001; 82550; 82565; 83036; 83605; 84484; 85025; 85610; 85730; 86850; 86900; 86901; 87040; 87636; 93005; 93306; 93312; 93320; 93325; 94760; 95816; 96361; 96365; 96366; 96367; 99291